=== PATIENT | female | born 1960 | race African-American/Black ===

== ENCOUNTER 2016-06-05 08:46 | Emergency (ER) | payer OTHER ==
[2016-06-05 08:53] VITALS: BP 148/95; PULSE 102; TEMP 100; BMI 35.3
[2016-06-05] MEDS ORDERED: ONDANSETRON *ODT* 4 MG TABLET SL ONE (09:30)
--- NOTE | 2016-06-05 09:30 | PDOC ---
History of Present Illness - General Chief Complaint: Sore Throat Stated Complaint: SORE THROAT, FEVER Time Seen by Provider: 06/05/16 09:15 History Source: Patient Exam Limitations: No Limitations - History of Present Illness Initial Comments: 06/05/16 09:16 Chief complaint: Body aches, sore throat, fever History of present illness: Patient is a 56-year-old female history of hypertension, hyperlipidemia, COPD and diabetes controlled by diet here today complaining of generalized body aches, sore throat, fever, nausea, dry cough , rt. sided back pain since yesterday. She had one episode of vomiting this morning. Pt. also reports urinary frequency, urgency and dysuria since 2016. 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 Patient denies any recent travel. Pt. reports feeling slightly short of breath presently. 06/05/16 09:16 06/05/16 09:33 06/05/16 09:40 06/05/16 12:00 06/06/16 08:46 Timing/Duration: getting worse, changing over time Severity: moderate Associated Symptoms: reports: cough, fever/chills (since yesterday ), loss of appetite, nausea/vomiting (nausea X last 2 days, vomited once today ), shortness of breath (intermittently since 06/02/16 with exertion relieved by pump ), other (urgency, frequency, rt. sided lower back pain ) Past History - Past Medical History Allergies/Adverse Reactions: Allergies Allergy/AdvReac Type Severity Reaction Status Date / Time No Known Allergies Allergy Verified 06/05/16 08:53 Home Medications: Ambulatory Orders Amlodipine Besylate [Norvasc -] 5 mg PO DAILY 04/30/14 Colesevelam HCl [Welchol] 3.75 gm PO DAILY 04/30/14 Nitrofurantoin Monohyd/M-Cryst [Macrobid -] 100 mg PO BID #14 capsule MDD 2 COPD: Yes Diabetes: Yes (DIET CONTROLLED) HTN: Yes Hypercholesterolemia: Yes (does not take medication) - Surgical History Cholecystectomy: Yes - Immunization History Immunization Up to Date: Yes - Psycho/Social/Smoking Cessation Hx Anxiety: No Suicidal Ideation: No Smoking Status: No Smoking History: Never smoked Have you smoked in the past 12 months: No Number of Cigarettes Smoked Daily: 0 If you are a former smoker, when did you quit?: 5 years ago Information on smoking cessation initiated: No Hx Alcohol Use: No Drug/Substance Use Hx: No Substance Use Type: None Hx Substance Use Treatment: No Review of Systems - Review of Systems Able to Perform ROS?: Yes Constitutional: No: Symptoms Reported HEENTM: Yes: Throat Pain Respiratory: Yes: Cough, SOB with Exertion (since 06/02/16) Cardiac (ROS): No: Symptoms Reported ABD/GI: Yes: Nausea (since yesterday ), Vomiting : Yes: Dysuria, Frequency, Urgency (since 06/02/16). No: Hematuria Musculoskeletal: Yes: Muscle Pain (rt. lower back ), Other (generalized body aches) Integumentary: No: Symptoms Reported Neurological: No: Symptoms reported *Physical Exam - Vital Signs Last Vital Signs Temp Pulse Resp BP Pulse Ox 100 F H 102 H 19 148/95 97 06/05/16 08:51 06/05/16 08:51 06/05/16 08:51 06/05/16 08:51 06/05/16 08:51 - Physical Exam General Appearance: Yes: Appropriately Dressed HEENT: positive: TMs Normal, Pharyngeal Erythema. negative: Tonsillar Exudate, Tonsillar Erythema Neck: negative: Lymphadenopathy (R), Lymphadenopathy (L) Respiratory/Chest: positive: Lungs Clear, Normal Breath Sounds. negative: Chest Tender, Respiratory Distress Cardiovascular: positive: Regular Rhythm, Regular Rate, S1, S2 Gastrointestinal/Abdominal: positive: Normal Bowel Sounds, Soft. negative: Tender, Organomegaly, Distended, Guarding, Rebound, Tenderness, Hepatomegaly, Spleenomegaly Musculoskeletal: positive: Normal Inspection, CVA Tenderness (R), Other (rt. lower back tenderness). negative: CVA Tenderness, CVA Tenderness (L) Integumentary: positive: Normal Color Neurologic: positive: Alert, Normal Response, Responsive Medical Decision Making - Medical Decision Making 06/05/16 09:41 Patient is a 56-year-old female history of hypertension, hyperlipidemia, COPD and diabetes controlled by diet here today complaining of generalized body aches , sore throat, fever, nausea, dry cough , rt. sided back pain since yesterday. Her twin episode of vomiting this morning. Patient also reports urinary frequency urgency and dysuria since 06/02/2016. 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 Patient denies any recent travel. {Pt. reports feeling slightly short of breath presently. right lower back pain Strep tonsillitis generalized bodyaches b/l renal calculi non obstructing UTI PLAN: influenza A or B rapid negative throat C & S + for Beta Hemolytic strep Group A U/A urine C & S duoneb zofran 4 mg sl Bicillin 1.2 million IM once ibuprofen 400 mg now macrobid 100 mg bid for 7 days follow up with urology Laboratory Tests 06/05/16 09:30 Urine Color Yellow Urine Appearance Clear Urine pH 5.0 Ur Specific [place] 1.023 Urine Protein Negative Urine Glucose (UA) Negative Urine Ketones Negative Urine Blood 1+ H Urine Nitrite Negative Urine Bilirubin Negative Urine Urobilinogen Negative Ur Leukocyte Esterase Trace H D Urine RBC 1 Urine WBC 2 Ur Epithelial Cells Rare Urine Mucus Rare 06/05/16 10:56 06/05/16 12:02 06/05/16 12:06 06/05/16 12:13 06/06/16 08:48 06/06/16 08:48 *DC/Admit/Observation/Transfer Diagnosis at time of Disposition: Streptococcal tonsillitis, Renal calculus, bilateral Urinary tract infection Qualifiers: Urinary tract infection type: acute cystitis Hematuria presence: with hematuria Qualified Code(s): N30.01 - Acute cystitis with hematuria - Discharge Dispostion Disposition: HOME Condition at time of disposition: Stable - Prescriptions Prescriptions: Nitrofurantoin Monohyd/M-Cryst [Macrobid -] 100 mg PO BID #14 capsule MDD 2 - Referrals Referrals: Stephanie Graf MD [Primary Care Provider] - Michael Jaimes MD [Staff Physician] - - Patient Instructions Additional Instructions: Drink A lot a fluids especially cranberry REturn To emergency room if symptoms worsen or new symptoms develop Follow Up with urologist as soon as possible Throw out her toothbrush and get new toothbrush Patient voiced understanding of discharge instructions and all questions were answered - Post Discharge Activity Work/School Note: Back to Work
[2016-06-05] MEDS ORDERED: ONDANSETRON *ODT* 4 MG TABLET ONE (09:35)
[2016-06-05] MEDS ORDERED: ALBUTEROL SO4 2.5/IPRATROPIUM 0.5 INH SOL 3 ML VIAL.NEB. NEB ONE ×2 (09:37→09:39)
[2016-06-05] MEDS ORDERED: IBUPROFEN 400 MG TABLET (FP) PO ONE ×2 (09:56→09:59)
[2016-06-05 10:26] LABS: URINE APPEARANCE CLEAR; URINE BILIRUBIN NEGATIVE (NEGATIVE); URINE COLOR YELLOW; URINE GLUCOSE (UA) NEGATIVE (NEGATIVE); URINE KETONE NEGATIVE (NEGATIVE); URINE NITRITE NEGATIVE (NEGATIVE); URINE PROTEIN NEGATIVE (NEGATIVE); URINE UROBILINOGEN NEGATIVE E.U./dl (0.2-1.0)
[2016-06-05 10:37] LABS: URINE BLOOD 1+ (NEGATIVE); URINE LEUK ESTERASE TRACE (NEGATIVE)
[2016-06-05 10:38] LABS: URINE MUCUS RARE; URINE RBC 1 /hpf (0-3); URINE WBC 2 /hpf (3-5)
[2016-06-05] MEDS ORDERED: PENICILLIN G BENZATHINE 1,200,000 UNIT/2 ML PFS IM ONE (12:08)
[2016-06-05] MEDS ORDERED: PENICILLIN G BENZATHINE 2,400,000 UNIT/4 ML PFS ONE (12:13)
== END 2016-06-05 12:18 | disposition home or self-care (01) ==
LOC: JERFT 08:46
DX: J03.90 Acute tonsillitis, unspecified (principal); B95.0 Streptococcus, group A, as the cause of diseases classified elsewhere; N30.00 Acute cystitis without hematuria; N20.0 Calculus of kidney
CPT/HCPCS: 74176; 81003; 81015; 87070; 87077; 87086; 87804; 96372; 99281-25

== ENCOUNTER 2016-11-26 14:27 | Emergency (ER) | payer OTHER ==
[2016-11-26 14:46] VITALS: BP 145/78; PULSE 86; TEMP 98.2; BMI 34.8
[2016-11-26] MEDS ORDERED: KETOROLAC TROMETHAMINE 30 MG/1 ML VIAL IVPUSH ONE (15:27)
[2016-11-26] MEDS ORDERED: SODIUM CHLORIDE 1,000 ML IV STA (15:27)
[2016-11-26] MEDS ORDERED: ONDANSETRON 4 MG/2 ML VIAL IVPUSH ONE (15:27)
[2016-11-26] MEDS ORDERED: KETOROLAC TROMETHAMINE 30 MG/1 ML VIAL ONE (15:34)
[2016-11-26] MEDS ORDERED: ONDANSETRON 4 MG/2 ML VIAL ONE (15:34)
--- NOTE | 2016-11-26 15:51 | PDOC ---
History of Present Illness - General Chief Complaint: Pain Stated Complaint: PAIN Time Seen by Provider: 11/26/16 14:54 History Source: Patient Exam Limitations: No Limitations - History of Present Illness Travel History: No Initial Comments: 11/26/16 16:31 56 y/o female presents the ED with complaints of right flank pain associated with nausea and mild urinary frequency. Patient states has history of renal colic and recently was diagnosed with the UTI but was unable to pick up man the antibiotics due to her pain today. Patient states is followed by Dr. Graf who was a prescribing physician for the urinary tract infection. Patient denies fever, chills, vomiting, hematuria, abdominal distention, or diarrhea. Timing/Duration: reports: constant Quality: reports: moderate Abdominal Pain Onset Location: reports: flank (rt) Pain Radiation: reports: back Activities at Onset: reports: none Aggravating Factors: improves with: None Alleviating Factors: improves with: None Past History - Travel Traveled outside of the country in the last 30 days: No Close contact w/someone who was outside of country & ill: No - Past Medical History Allergies/Adverse Reactions: Allergies Allergy/AdvReac Type Severity Reaction Status Date / Time No Known Allergies Allergy Verified 11/26/16 14:46 Home Medications: Ambulatory Orders Amlodipine Besylate [Norvasc -] 5 mg PO DAILY 04/30/14 Acetaminophen [Tylenol] 325 mg PO Q6H PRN #16 tablet 11/26/16 Nitrofurantoin Monohyd/M-Cryst [Macrobid -] 100 mg PO BID #14 capsule 11/26/16 COPD: Yes Diabetes: Yes (DIET CONTROLLED) HTN: Yes Hypercholesterolemia: Yes (does not take medication) - Surgical History Cholecystectomy: Yes - Immunization History Immunization Up to Date: Yes - Suicide/Smoking/Psychosocial Hx Smoking Status: No Smoking History: Never smoked Have you smoked in the past 12 months: No Number of Cigarettes Smoked Daily: 0 If you are a former smoker, when did you quit?: 5 years ago Information on smoking cessation initiated: No Hx Alcohol Use: No Drug/Substance Use Hx: No Substance Use Type: None Hx Substance Use Treatment: No Patient Lives Alone: No Lives with/in: spouse/SO Review of Systems - Review of Systems Able to Perform ROS?: Yes Constitutional: No: Symptoms Reported HEENTM: No: Symptoms Reported Respiratory: No: Symptoms reported Cardiac (ROS): No: Symptoms Reported ABD/GI: Yes: Nausea, Abdominal cramping : Yes: Frequency, Flank Pain Musculoskeletal: Yes: Back Pain Integumentary: No: Symptoms Reported Neurological: No: Symptoms reported Endocrine: No: Symptoms Reported *Physical Exam - Vital Signs Last Vital Signs Temp Pulse Resp BP Pulse Ox 98.2 F 86 18 145/78 100 11/26/16 14:40 11/26/16 14:40 11/26/16 14:40 11/26/16 14:40 11/26/16 14:40 - Physical Exam General Appearance: Yes: Nourished, Appropriately Dressed. No: Apparent Distress HEENT: negative: Pale Conjunctivae Neck: positive: Supple Respiratory/Chest: positive: Lungs Clear, Normal Breath Sounds. negative: Respiratory Distress, Accessory Muscle Use Cardiovascular: positive: Regular Rhythm, Regular Rate. negative: Murmur Gastrointestinal/Abdominal: positive: Normal Bowel Sounds, Soft, Tenderness (rt flank). negative: Distended, Guarding, Rebound Musculoskeletal: positive: CVA Tenderness (R) Extremity: positive: Normal Capillary Refill. negative: Pedal Edema Integumentary: positive: Normal Color, Warm, Moist Neurologic: positive: Motor Strength 5/5 (ambulatory) ED Treatment Course - LABORATORY CBC & Chemistry Diagram: 11/26/16 15:45 11/26/16 15:45 Medical Decision Making - Medical Decision Making 11/26/16 17:00 Patient here with complaints of right flank pain and urinary frequency and nausea. Patient states history of renal colic and recently was diagnosed with UTI by Dr. cates but was unable to start antibiotics today secondary to above symptoms. Patient on exam had right CVA tenderness along the right flank pain. Patient with a CBC, comp, urinalysis, urine culture Zofran, Toradol IV fluids and kidney ultrasound. 11/26/16 17:22 Laboratory Tests 11/26/16 11/26/16 11/26/16 15:45 15:45 15:45 WBC 5.6 Hgb 12.9 Hct 39.7 Plt Count 221 Neutrophils % 49.2 D Lymphocytes % 41.4 H D Sodium 143 Potassium 3.2 L Chloride 107 Carbon Dioxide 30 Anion Gap 6 L BUN 12 Creatinine 0.9 Creat Clearance w eGFR > 60 Random Glucose 150 H D Calcium 8.8 Magnesium 1.9 Total Bilirubin 1.3 H D AST 29 D ALT 32 D Lipase 133 Urine Ketones Negative Urine Blood 1+ H Ur Leukocyte Esterase Pending Urine RBC 20 Urine WBC 9 k-Dur 40 meq po x 1 ordered. *DC/Admit/Observation/Transfer Diagnosis at time of Disposition: Urinary tract infection, Renal cyst - Discharge Dispostion Disposition: HOME - Prescriptions Prescriptions: Nitrofurantoin Monohyd/M-Cryst [Macrobid -] 100 mg PO BID #14 capsule Acetaminophen [Tylenol] 325 mg PO Q6H PRN #16 tablet PRN Reason: Pain - Referrals Referrals: Stephanie Graf MD [Primary Care Provider] - Mili Joy MD [Staff Physician] - - Patient Instructions Printed Discharge Instructions: DI for Urinary Tract Infection (UTI) Additional Instructions: Please take medications as prescribed. Follow up with Dr. Graf by the end of this week. You may manage the discomfort from the cyst from your kidney using Tylenol; however you should follow up with a pet crematory worker for continued monitoring of your kidney function. If you develop any fever, chills, vomiting , diarrhea, unmanageable pain, or any new or worsening symptoms, please return to the ER.
[2016-11-26 15:57] LABS: BASOPHIL 0.8 % (0-2.0); EOSINOPHIL 2.1 % (0-4.5); MCH 26.9 pg (25.7-33.7); MCHC 32.6 g/dl (32.0-36.0); MEAN CELL VOLUME 82.4 fl (80-96); NEUTROPHILS 49.2 % (42.8-82.8); PLATELET COUNT 221 K/MM3 (134-434); RDW 14.4 % (11.6-15.6); URINE APPEARANCE CLOUDY; URINE BILIRUBIN NEGATIVE (NEGATIVE); URINE BLOOD 1+ (NEGATIVE); URINE COLOR YELLOW; URINE GLUCOSE (UA) 1+ (NEGATIVE); URINE KETONE NEGATIVE (NEGATIVE); URINE NITRITE NEGATIVE (NEGATIVE); URINE PROTEIN NEGATIVE (NEGATIVE); URINE UROBILINOGEN NEGATIVE mg/dL (0.2-1.0); WHITE BLOOD COUNT 5.6 K/mm3 (4.0-10.0)
[2016-11-26 16:00] LABS: URINE BACTERIA RARE /hpf (NONE SEEN); URINE HYALINE CAST 3 /lpf; URINE MUCUS RARE; URINE RBC 20 /hpf (0-3); URINE WBC 9 /hpf (3-5)
[2016-11-26 16:29] LABS: ALBUMIN 3.5 g/dl (3.4-5.0); ALK PHOS 87 U/L (45-117); ANION GAP 6 (8-16); BILIRUBIN,TOTAL 1.3 mg/dL (0.2-1.0); CALCIUM 8.8 mg/dL (8.5-10.1); CO2 30 mmol/L (21-32); CREATININE 0.9 mg/dL (0.55-1.02); GLUCOSE,RANDOM 150 mg/dL (74-106); MAGNESIUM 1.9 mg/dL (1.8-2.4); SGOT/AST 29 U/L (15-37); SGPT/ALT 32 U/L (12-78); TOT PROT 7.3 g/dl (6.4-8.2)
[2016-11-26] MEDS ORDERED: POTASSIUM CHLORIDE TABS 20 MEQ TABLET.ER (FP) PO ONE ×2 (17:21→17:42)
[2016-11-26 17:35] LABS: URINE LEUK ESTERASE 1+ (NEGATIVE)
--- NOTE | 2016-11-26 19:40 | PDOC ---
*Physical Exam - Vital Signs Last Vital Signs Temp Pulse Resp BP Pulse Ox 98.2 F 86 18 145/78 100 11/26/16 14:40 11/26/16 14:40 11/26/16 14:40 11/26/16 14:40 11/26/16 14:40 - Physical Exam Comments: 11/26/16 19:35 Sign-out received from outgoing ER provider Elver. Pt interviewed and examined. Ancillary studies reviewed. Awaiting ultrasound results. 11/26/16 20:13 Ultrasound positive for 2.4cm complex cyst in upper pole of left kidney. No hydronephrosis b/l. No obvious renal calculi. Some doppler vascular flow noted in both kidneys. Incidental hepatic steatosis. Advised patient to f/u with Dr. 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 Patient states she wants to picker machine operator medication today from [facility] because Dr. Graf sent medication to [facility]; patient is unsure what antibiotics he prescribed. Will rx Macrobid for UTI and Tylenol for discomfort secondary to cyst. Advised patient to take antibiotics as prescribed and of signs and symptoms for return to ER; patietn verbalized understanding and agrees to plan. ED Treatment Course - LABORATORY CBC & Chemistry Diagram: 11/26/16 15:45 11/26/16 15:45 - ADDITIONAL ORDERS Additional order review: Laboratory Results 11/26/16 11/26/16 15:45 15:45 Sodium 143 Potassium 3.2 L Chloride 107 Carbon Dioxide 30 Anion Gap 6 L BUN 12 Creatinine 0.9 Creat Clearance w eGFR > 60 Random Glucose 150 H D Calcium 8.8 Magnesium 1.9 Total Bilirubin 1.3 H D AST 29 D ALT 32 D Alkaline Phosphatase 87 Total Protein 7.3 Albumin 3.5 Lipase 133 Urine Color Yellow Urine Appearance Cloudy Urine pH 5.0 Ur Specific [place] 1.025 Urine Protein Negative Urine Glucose (UA) 1+ H Urine Ketones Negative Urine Blood 1+ H Urine Nitrite Negative Urine Bilirubin Negative Urine Urobilinogen Negative Ur Leukocyte Esterase 1+ H Urine RBC 20 Urine WBC 9 Ur Epithelial Cells Few Urine Bacteria Rare Hyaline Casts 3 Urine Mucus Rare 11/26/16 15:45 RBC 4.82 MCV 82.4 MCHC 32.6 RDW 14.4 MPV 9.0 Neutrophils % 49.2 D Lymphocytes % 41.4 H D Monocytes % 6.5 Eosinophils % 2.1 Basophils % 0.8 - Medications Given in the ED: ED Medications Discontinued Medications Generic Name Dose Route Start Last Admin Trade Name Freq PRN Reason Stop Dose Admin Sodium Chloride 1,000 mls @ 1,000 mls/hr 11/26/16 15:27 11/26/16 15:30 Normal Saline - IV 11/26/16 16:26 1,000 mls/hr ASDIR STA Administration Ketorolac Tromethamine 30 mg 11/26/16 15:27 11/26/16 15:30 Toradol Injection - IVPUSH 11/26/16 15:28 30 mg ONCE ONE Administration Ondansetron HCl 4 mg 11/26/16 15:27 11/26/16 15:30 Zofran Injection IVPUSH 11/26/16 15:28 4 mg ONCE ONE Administration Potassium Chloride 40 meq 11/26/16 17:21 11/26/16 17:25 K-Dur - PO 11/26/16 17:22 40 meq ONCE ONE Administration *DC/Admit/Observation/Transfer Diagnosis at time of Disposition: Renal cyst Urinary tract infection Qualifiers: Urinary tract infection type: site unspecified Hematuria presence: with hematuria Qualified Code(s): N39.0 - Urinary tract infection, site not specified ; N39.0 - Urinary tract infection, site not specified; R31.9 - Hematuria, unspecified; R31.9 - Hematuria, unspecified - Discharge Dispostion Disposition: HOME Condition at time of disposition: Improved Admit: No - Prescriptions Prescriptions: Nitrofurantoin Monohyd/M-Cryst [Macrobid -] 100 mg PO BID #14 capsule Acetaminophen [Tylenol] 325 mg PO Q6H PRN #16 tablet PRN Reason: Pain - Referrals Referrals: Stephanie Graf MD [Primary Care Provider] - Mili Joy MD [Staff Physician] - - Patient Instructions Printed Discharge Instructions: DI for Urinary Tract Infection (UTI) Additional Instructions: Please take medications as prescribed. Follow up with Dr. Graf by the end of this week. You may manage the discomfort from the cyst from your kidney using Tylenol; however you should follow up with a weed control inspector for continued monitoring of your kidney function. If you develop any fever, chills, vomiting , diarrhea, unmanageable pain, or any new or worsening symptoms, please return to the ER.
== END 2016-11-26 20:41 | disposition home or self-care (01) ==
LOC: JER 14:27
PROC: 3E0333Z Introduction of Anti-inflammatory into Peripheral Vein, Percutaneous Approach (ICD-10-PCS; principal; 2016-11-26)
PROC: 3E033GC Introduction of Other Therapeutic Substance into Peripheral Vein, Percutaneous Approach (ICD-10-PCS; 2016-11-26)
DX: N39.0 Urinary tract infection, site not specified (principal); N31.9 Neuromuscular dysfunction of bladder, unspecified; N28.1 Cyst of kidney, acquired
CPT/HCPCS: 36415; 76775-TC; 80053; 81003; 81015; 83690; 83735; 85025; 87086; 96374; 96375; 99281-25

== ENCOUNTER 2017-06-06 13:00 | Emergency (ER) | payer OTHER ==
[2017-06-06 13:14] VITALS: TEMP 98.5; BMI 34.3
--- NOTE | 2017-06-06 14:04 | PDOC ---
History of Present Illness - General Chief Complaint: Pain, Acute Stated Complaint: RT SIDE PAIN Time Seen by Provider: 06/06/17 13:33 History Source: Patient Exam Limitations: No Limitations - History of Present Illness Initial Comments: This is a 57 YOF with h/o NIDDM, HTN, HLD, multiple ovarian cysts, TIAx2, and multiple abdominal surgeries (CSx2, cholecystectomy, partial HYST, ovarian cyst removal, and partial colectomy to remove a portion of necrotic bowel which she says was d/t adhesions) who p/w BRBPR on 5 days ago (states about one cup), and RLQ pain since this morning. She notes 7/10 sharp nagging non-radiating RLQ pain currently which was actually 10/10 at the first onset this morning. She additionally notes nausea, recent dark/black stool for a few episodes since Sunday, and concentrated urine but she denies any actual vomiting, diarrhea, constipation, fever, chills, chest pain, SOB, painful urination, headache, or lightheadedness. She has been passing gas normally today. She denies any sick contacts or heavy lifting. Past History - Past Medical History Allergies/Adverse Reactions: Allergies Allergy/AdvReac Type Severity Reaction Status Date / Time No Known Allergies Allergy Verified 06/06/17 13:11 Home Medications: Ambulatory Orders Amlodipine Besylate [Norvasc -] 5 mg PO DAILY 04/30/14 Aspirin [ASA -] 81 mg PO DAILY 06/06/17 Ciprofloxacin HCl [Cipro] 500 mg PO BID #14 tablet 06/06/17 Lisinopril 5 mg PO DAILY 06/06/17 Metformin HCl 500 mg PO BID 06/06/17 COPD: Yes Diabetes: Yes (DIET CONTROLLED) HTN: Yes Hypercholesterolemia: Yes (does not take medication) - Surgical History Cholecystectomy: Yes - Immunization History Immunization Up to Date: Yes - Suicide/Smoking/Psychosocial Hx Smoking Status: No Smoking History: Never smoked Have you smoked in the past 12 months: No Number of Cigarettes Smoked Daily: 0 If you are a former smoker, when did you quit?: 12YRS Information on smoking cessation initiated: No Hx Alcohol Use: No Drug/Substance Use Hx: No Substance Use Type: None Hx Substance Use Treatment: No Review of Systems - Review of Systems Able to Perform ROS?: Yes Constitutional: No: Chills, Fever, Unexplained wgt Loss HEENTM: No: Nose Congestion, Throat Pain Respiratory: No: Cough, Shortness of Breath Cardiac (ROS): No: Chest Pain, Palpitations ABD/GI: Yes: Nausea, Rectal Bleeding, Other (abdominal pain). No: Constipated, Diarrhea, Vomiting : Yes: Other (concentrated urine). No: Burning, Dysuria Musculoskeletal: No: Back Pain, Neck Pain Integumentary: No: Bruising, Rash Neurological: No: Headache, Numbness, Tingling, Weakness, Dizziness Endocrine: No: Unexplained Weight Gain, Unexplained Weight Loss *Physical Exam - Vital Signs Last Vital Signs Temp Pulse Resp BP Pulse Ox 98.5 F 72 17 134/83 97 06/06/17 13:12 06/06/17 13:12 06/06/17 13:12 06/06/17 13:12 06/06/17 13:12 - Physical Exam General Appearance: Yes: Nourished, Appropriately Dressed, Obese, Other (alert, oriented, pleasant, appropriately answering adult female accompanied by her daughter). No: Apparent Distress HEENT: positive: EOMI, Normal Voice, Hearing Grossly Normal. negative: Scleral Icterus (R), Scleral Icterus (L), Nasal Congestion Neck: positive: Trachea midline, Supple. negative: Tender, Rigid Respiratory/Chest: positive: Lungs Clear, Normal Breath Sounds. negative: Respiratory Distress, Crackles, Rhonchi, Stridor, Wheezing Cardiovascular: positive: Regular Rhythm, Regular Rate, S1, S2. negative: Edema , JVD, Murmur Gastrointestinal/Abdominal: positive: Normal Bowel Sounds, Tender (mild ttp RLQ with minimal RUQ and epigastric ttp, no peritoneal signs), Soft. negative: Organomegaly, Pulsatile Mass, Guarding Rectal Exam: positive: normal exam, normal rectal tone, other (no stool in the rectal vault, no blood and minimal sample can be obtained for FOBT). negative: hemorrhoids Musculoskeletal: positive: Normal Inspection. negative: Decreased Range of Motion, Vertebral Tenderness Extremity: positive: Normal Capillary Refill, Normal Inspection, Normal Range of Motion. negative: Tender, Cyanosis Integumentary: positive: Normal Color, Dry, Warm. 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 negative: Facial Droop , Numbness, Sensory Deficit, Confused, Disoriented ED Treatment Course - LABORATORY CBC & Chemistry Diagram: 06/06/17 13:54 06/06/17 13:54 Medical Decision Making - Medical Decision Making Adult female patient with many prior abdominal surgeries p/w RLQ pain and BRBPR. Initial Vital Signs Temp Pulse Resp BP Pulse Ox 98.5 F 72 17 134/83 97 06/06/17 13:12 06/06/17 13:12 06/06/17 13:12 06/06/17 13:12 06/06/17 13:12 Exam: mild ttp RLQ, minimal RUQ and epigastrium ttp without peritoneal signs or CVA ttp, no midline pulsatile masses. DDX IBNLT: UTI/pyelonephritis, renal colic, SBO, bowel ischemia, bowel perforation, malignancy, ovarian torsion, ovarian cyst, AAA/AD, hernia, pancreatitis, gastritis, PUD, appendicitis, diverticulitis wwo abscess or perforation, colitis, regional ileitis (Crohns disease), musculoskeletal, etc W/U ordered: CBCD CMP Lactate Lipase UA UCx FOBT TX ordered: IVF, Ofirmev Unlikely UTI/pyelonephritis as patient has no dysuria, strange colors/smells, no h/o recurrent UTI. Unlikely renal stone as patient notes no clinical hematuria, has no CVA ttp. Unlikely SBO as patient has been passing stool and gas normally per their baseline. Unlikely mesenteric ischemia as patient has no known A-fib or coagulopathy, no pain out of proportion. Unlikely bowel perforation as patient does not appear to have acute abdomen, no peritoneal signs. Unlikely malignancy as patient has no palpable mass, no reported recent B symptoms. Unlikely diverticulitis as patient has no known h/o diverticulosis/ diverticulitis. Unlikely colitis as clinically pts abdomen is not distended/no ascites, no fever, other VS wnl. Unlikely ovarian torsion as patient has no adnexal ttp on bimanual exam. Unlikely ovarian cyst as patient denies h/o ovarian cysts, unlikely hemorrhagic as pt denies sxs of anemia. Unlikely AAA/AD as no midline pulsatile mass or h/o AAA/AD, denies h/o HTN or connective tissue d/o. Unlikely hernia as there is no outwardly palpable lump. Unlikely pancreatitis as pt denies EtOH use, h/o gallstones, no known hypercalcemia. Unlikely gastritis as pt denies h/o significant GERD, no overuse of EtOH. Unlikely PUD as pt does not report relief of pain ~2 hours postprandially or with antacids. Unlikely appendicitis as pt has no fever, no anorexia, no marked RLQ or umbilical ttp. Unlikely Crohns as pt denies recent wt loss, anorexia, diarrhea, or h/o Crohns (though onset MC in 20s & 50s). Laboratory Results - last 24 hr 06/06/17 06/06/17 06/06/17 13:54 13:54 13:54 WBC 5.4 RBC 4.73 Hgb 13.1 Hct 39.4 MCV 83.3 MCH 27.6 MCHC 33.2 RDW 14.0 Plt Count 227 MPV 8.6 Neutrophils % 40.7 L Lymphocytes % 47.2 H Monocytes % 8.5 Eosinophils % 2.8 Basophils % 0.8 Sodium 142 Potassium 3.6 Chloride 105 Carbon Dioxide 28 Anion Gap 9 BUN 12 Creatinine 0.7 Creat Clearance w eGFR > 60 Random Glucose 121 H Lactic Acid Calcium 9.4 Total Bilirubin 1.4 H AST 29 ALT 30 Alkaline Phosphatase 81 Total Protein 7.5 Albumin 3.7 Lipase 88 Urine Color Yellow Urine Appearance Slcloudy Urine pH 5.0 Ur Specific [place] 1.023 Urine Protein Negative Urine Glucose (UA) Negative Urine Ketones Negative Urine Blood Negative Urine Nitrite Negative Urine Bilirubin Negative Urine Urobilinogen Negative Ur Leukocyte Esterase 2+ H D Urine WBC (Auto) 6 Urine RBC (Auto) 3 Ur Epithelial Cells Few Urine Bacteria Rare Hyaline Casts 2 Urine Mucus Few Stool Occult Blood 06/06/17 06/06/17 14:08 14:08 WBC RBC Hgb Hct MCV MCH MCHC RDW Plt Count MPV Neutrophils % Lymphocytes % Monocytes % Eosinophils % Basophils % Sodium Potassium Chloride Carbon Dioxide Anion Gap BUN Creatinine Creat Clearance w eGFR Random Glucose Lactic Acid 1.7 Calcium Total Bilirubin AST ALT Alkaline Phosphatase Total Protein Albumin Lipase Urine Color Urine Appearance Urine pH Ur Specific [place] Urine Protein Urine Glucose (UA) Urine Ketones Urine Blood Urine Nitrite Urine Bilirubin Urine Urobilinogen Ur Leukocyte Esterase Urine WBC (Auto) Urine RBC (Auto) Ur Epithelial Cells Urine Bacteria Hyaline Casts Urine Mucus Stool Occult Blood Negative CT: probable mild sigmoid diverticulosis without diverticulitis no other acute causative pathology. Reassessment: Minimal RLQ ttp without peritoneal signs, improved from presentation Repeat VS: The patient has gotten significant relief of symptoms with ED medications. Workup is not concerning for emergency-level pathology at this time. The patient is appropriate for discharge with close outpatient follow up. The patient is comfortable with this plan and will follow up with their PCP in 1 -3 days. She will take Motrin and/or Tylenol for pain. She will brick picker her Rx for cipro for UTI and diverticulosis. She will follow up with their regular doctor in the next 1-3 days. Return precautions are discussed and they will come back to the ER if necessary. *DC/Admit/Observation/Transfer Diagnosis at time of Disposition: Renal calculus, bilateral Urinary tract infection Qualifiers: Urinary tract infection type: site unspecified Hematuria presence: with hematuria Qualified Code(s): N39.0 - Urinary tract infection, site not specified Diverticulosis Qualifiers: Diverticulosis site: diverticulosis of large intestine Diverticulosis bleeding : diverticulosis with bleeding Qualified Code(s): K57.31 - Diverticulosis of large intestine without perforation or abscess with bleeding - Discharge Dispostion Disposition: HOME Condition at time of disposition: Stable Admit: No - Prescriptions Prescriptions: Ciprofloxacin HCl [Cipro] 500 mg PO BID #14 tablet - Referrals Referrals: Panfilo Hansen MD [Staff Physician] - Stephanie Graf MD [Primary Care Provider] - - Patient Instructions Additional Instructions: You were seen in the ER for lower abdominal pain and rectal bleeding. We did an exam, laboratory work on your blood and urine, and CT scan, which showed a mild colon diverticulosis and a bladder infection, as well as some kidney stones which are not currently trying to pass. We did not find any other signs of an emergency. Your pain improved with the medications we gave you here in the ER. After our assessment, we believe you are not having a medical emergency and you are safe to go home. Please take [id number] pain relievers like Tylenol. family support specialist your prescriptions for antibiotic which we are sending to your pharmacy. Follow up with your regular doctor(s) in the next 1-3 days. Also follow up with Dr. Hansen. Call their clinic [facility], tell them you were seen in the ER, and tell them you need an appointment. Please come back to the ER at any time, 24 hours a day, for any new or worsening symptoms, like worsening pelvic pain, discharge, high fever, or other symptoms. If you are having severe or life threatening symptoms, or symptoms that make it unsafe to drive or have someone drive you, please call 911. - Post Discharge Activity Forms/Work/School Notes: Back to Work
[2017-06-06 14:07] LABS: BASO % 0.8 % (0-2.0); EOS % 2.8 % (0-4.5); HEMATOCRIT 39.4 % (32.4-45.2); HEMOGLOBIN 13.1 GM/dL (10.7-15.3); LYMPH % 47.2 % (8-40); MCH 27.6 pg (25.7-33.7); MCHC 33.2 g/dl (32.0-36.0); MEAN CELL VOLUME 83.3 fl (80-96); MEAN PLT VOLUME 8.6 fl (7.5-11.1); MONO % 8.5 % (3.8-10.2); NEUT % 40.7 % (42.8-82.8); PLATELET COUNT 227 K/MM3 (134-434); RBC 4.73 M/mm3 (3.60-5.2); WHITE BLOOD COUNT 5.4 K/mm3 (4.0-10.0)
[2017-06-06] MEDS ORDERED: SODIUM CHLORIDE 0.9% 500 ML INFUS.BAG IV ONE (14:07)
[2017-06-06 14:08] LABS: URINE APPEARANCE SLCLOUDY; URINE BILIRUBIN NEGATIVE (<2.0 mg/dL); URINE BLOOD NEGATIVE (NEGATIVE); URINE COLOR YELLOW; URINE GLUCOSE (UA) NEGATIVE (NEGATIVE); URINE KETONE NEGATIVE (NEGATIVE); URINE LEUK ESTERASE 2+ (NEGATIVE); URINE NITRITE NEGATIVE (NEGATIVE); URINE PROTEIN NEGATIVE (NEGATIVE); URINE UROBILINOGEN NEGATIVE mg/dL (0.2-1.0)
[2017-06-06 14:10] LABS: EPI CELLS FEW /HPF (FEW); URINE BACTERIA RARE /hpf (NONE SEEN); URINE HYALINE CAST 2 /lpf; URINE MUCUS FEW
[2017-06-06 14:30] LABS: ALBUMIN 3.7 g/dl (3.4-5.0); ALK PHOS 81 U/L (45-117); ANION GAP 9 (8-16); BILIRUBIN,TOTAL 1.4 mg/dL (0.2-1.0); BLOOD UREA NITROGEN 12 mg/dL (7-18); CALCIUM 9.4 mg/dL (8.5-10.1); CHLORIDE 105 mmol/L (98-107); CO2 28 mmol/L (21-32); CREATININE 0.7 mg/dL (0.55-1.02); GLUCOSE,RANDOM 121 mg/dL (74-106); LIPASE 88 U/L (73-393); POTASSIUM 3.6 mmol/L (3.5-5.1); SGOT/AST 29 U/L (15-37); SGPT/ALT 30 U/L (12-78); SODIUM 142 mmol/L (136-145); TOT PROT 7.5 g/dl (6.4-8.2)
--- NOTE | 2017-06-06 14:34 | PDOC ---
Attending Attestation - HPI HPI: 06/06/17 14:40 The patient is a 57 year old female, with a significant past medical history of diabetes, hypertension, hyperlipidemia, TIAX2, multiple ovarian cysts, TIAx2, and multiple abdominal surgeries (CSx2, cholecystectomy, partial hysterectomy, ovarian cyst removal, and partial colectomy to remove a portion of necrotic bowel), who presents to the emergency department with episode of blood in stool 5 days ago and right lower quadrant pain since today. Patient reports she first noted bright red blood in the toilet bowl about 5 days ago. Today, she reports new onset of right lower quadrant pain, sharp in nature, and nonradiating. Patient currently rates the pain a 7/10. She reports associated nausea, but denies any diarrhea or constipation. Patient reports she has been able to pass gas normally. She denies any recent fever, chills, chest pain, shortness of breath, diaphoresis, or palpitations. She denies any recent travel, sick contacts, or heavy lifting. The patient is on Aspirin - Medical Decision Making 06/06/17 14:40 Documentation prepared by Cinda Fine, acting as medical researcher for Rohith Campuzano MD. <Cinda Fine - Last Filed: 06/06/17 14:40> - Resident Resident Name: Lois Lundberg - ED Attending Attestation I have performed the following: I have examined & evaluated the patient, The case was reviewed & discussed with the resident, I agree w/resident's findings & plan, Exceptions are as noted - Physicial Exam PE: 06/06/17 16:15 Patient is awake and alert, obese, in mild distress; Normocephalic, atraumatic PERRLA, EOMI, no scleral icterus CTA RRR Abdomen: Soft, distended, nontympanitic, with mild to moderate right lower quadrant and right-sided abdominal tenderness to palpation without guarding rebound, no CVA tenderness - Medical Decision Making 06/06/17 16:15 Patient is a 57-year-old female with multiple abdominal surgeries who presents with right-sided abdominal pain, nausea and obstipation. Differential diagnoses includes SBO versus UTI versus acute appendicitis versus colitis versus diverticulitis. Will obtain CBC/CMP/UA. Will obtain CT that and pelvis with by mouth contrast. Will hydrate. Will reassess. <Rohith Campuzano - Last Filed: 06/06/17 16:16>
[2017-06-06] MEDS ORDERED: ACETAMINOPHEN 1000 MG/100 ML VIAL (NON FORMULARY) IVPB ONE (15:02)
[2017-06-06] MEDS ORDERED: ACETAMINOPHEN INJECTION 100 ML IVPB ONE (15:03)
[2017-06-06 18:29] VITALS: BP 130/69; PULSE 76
--- NOTE | 2017-06-06 19:54 | PDOC ---
*Physical Exam - Vital Signs Last Vital Signs Temp Pulse Resp BP Pulse Ox 98.5 F 76 16 130/69 99 06/06/17 13:12 06/06/17 18:29 06/06/17 18:29 06/06/17 18:29 06/06/17 18:29 - Physical Exam Comments: 06/06/17 19:52 Gen: aaox3, nad heart: +1s2 reg Lungs: cta b/l Abd: soft, no cva ttp, mild RLQ ttp, no rebound or guarding, obese ext: no edema ED Treatment Course - LABORATORY CBC & Chemistry Diagram: 06/06/17 13:54 06/06/17 13:54 - ADDITIONAL ORDERS Additional order review: Laboratory Results 06/06/17 06/06/17 06/06/17 14:08 14:08 13:54 Sodium 142 Potassium 3.6 Chloride 105 Carbon Dioxide 28 Anion Gap 9 BUN 12 Creatinine 0.7 Creat Clearance w eGFR > 60 Random Glucose 121 H Lactic Acid 1.7 Calcium 9.4 Total Bilirubin 1.4 H AST 29 ALT 30 Alkaline Phosphatase 81 Total Protein 7.5 Albumin 3.7 Lipase 88 Urine Color Urine Appearance Urine pH Ur Specific [place] Urine Protein Urine Glucose (UA) Urine Ketones Urine Blood Urine Nitrite Urine Bilirubin Urine Urobilinogen Ur Leukocyte Esterase Urine WBC (Auto) Urine RBC (Auto) Ur Epithelial Cells Urine Bacteria Hyaline Casts Urine Mucus Stool Occult Blood Negative 06/06/17 13:54 Sodium Potassium Chloride Carbon Dioxide Anion Gap BUN Creatinine Creat Clearance w eGFR Random Glucose Lactic Acid Calcium Total Bilirubin AST ALT Alkaline Phosphatase Total Protein Albumin Lipase Urine Color Yellow Urine Appearance Slcloudy Urine pH 5.0 Ur Specific [place] 1.023 Urine Protein Negative Urine Glucose (UA) Negative Urine Ketones Negative Urine Blood Negative Urine Nitrite Negative Urine Bilirubin Negative Urine Urobilinogen Negative Ur Leukocyte Esterase 2+ H D Urine WBC (Auto) 6 Urine RBC (Auto) 3 Ur Epithelial Cells Few Urine Bacteria Rare Hyaline Casts 2 Urine Mucus Few Stool Occult Blood 06/06/17 13:54 RBC 4.73 MCV 83.3 MCHC 33.2 RDW 14.0 MPV 8.6 Neutrophils % 40.7 L Lymphocytes % 47.2 H Monocytes % 8.5 Eosinophils % 2.8 Basophils % 0.8 - Medications Given in the ED: ED Medications Discontinued Medications Generic Name Dose Route Start Last Admin Trade Name Freq PRN Reason Stop Dose Admin Acetaminophen 1,000 mg 06/06/17 15:02 06/06/17 15:05 Ofirmev Injection - IVPB 06/06/17 15:03 1,000 mg ONCE ONE Administration Sodium Chloride 1,000 ml 06/06/17 14:07 06/06/17 14:18 Normal Saline - IV 06/06/17 14:08 1,000 ml ONCE ONE Administration Medical Decision Making - Medical Decision Making 06/06/17 19:52 a/p: 57yo female signed out by the prior attending pending ct for eval of R flank pain -pt with bilateral renal calculi in renal pelvis, nonobstructing -pt with sigmoid diverticulosis, no diverticulitis -mild UTI, mild suprapubic ttp -will give abx for uti -recommend follow up with lantin for rectal bleeding 5 days ago -stable for d/c to home -eating and tolerating po in the ED -stable for d/c to home *DC/Admit/Observation/Transfer Diagnosis at time of Disposition: Diverticulosis, UTI (urinary tract infection), Renal calculus, bilateral - Discharge Dispostion Disposition: HOME Condition at time of disposition: Stable Admit: No - Prescriptions Prescriptions: Ciprofloxacin HCl [Cipro] 500 mg PO BID #14 tablet metroNIDAZOLE [Flagyl -] 500 mg PO TID #21 tablet - Referrals Referrals: Stephanie Graf MD [Primary Care Provider] - Panfilo Hansen MD [Staff Physician] - - Patient Instructions - Post Discharge Activity - Attestations Physician Attestion: 06/06/17 19:52 I, Dr. Nisha Putnam, DO, attest that this document has been prepared under my direction and personally reviewed by me in its entirety. I further attest, that it accurately reflects all work, treatment, procedures and medical decision -making performed by me.
== END 2017-06-06 20:20 | disposition home or self-care (01) ==
LOC: JER 13:00
PROC: 3E033NZ Introduction of Analgesics, Hypnotics, Sedatives into Peripheral Vein, Percutaneous Approach (ICD-10-PCS; principal; 2017-06-06)
DX: K57.31 Diverticulosis of large intestine without perforation or abscess with bleeding (principal); N39.0 Urinary tract infection, site not specified; N20.0 Calculus of kidney; I10 Essential (primary) hypertension; Z86.73 Personal history of transient ischemic attack (TIA), and cerebral infarction without residual deficits
CPT/HCPCS: 36415; 74176-TC; 80053; 81003; 81015; 82272; 83605; 83690; 85025; 87086; 99283-25; J0131

== ENCOUNTER 2018-02-18 15:05 | Emergency (ER) | payer OTHER ==
[2018-02-18 15:23] VITALS: BMI 33.4
--- NOTE | 2018-02-18 15:23 | PDOC ---
Rapid Medical Evaluation Time Seen by Provider: 02/18/18 15:20 Medical Evaluation: Allergies Allergy/AdvReac Type Severity Reaction Status Date / Time No Known Allergies Allergy Verified 06/06/17 13:11 02/18/18 15:21 I have done a brief in-person assessment of this patient. The patient presents with a chief complaint of elevated blood pressure and headache since last night States taking medication for HTN with no relief of symptoms Intermittent chest pain Pertinent physical exam findings NAD even and unlabored breathing heart s1s2 right side of neck with swelling I have ordered the following: ekg, labs The patient will proceed to the Ed for further evaluation. DX: elevated blood pressure chest pain
[2018-02-18 15:53] LABS: BASO % 0.6 % (0-2.0); EOS % 2.5 % (0-4.5); HEMATOCRIT 39.6 % (32.4-45.2); HEMOGLOBIN 12.7 GM/dL (10.7-15.3); LYMPH % 43.1 % (8-40); MCH 26.4 pg (25.7-33.7); MEAN CELL VOLUME 82.4 fl (80-96); MEAN PLT VOLUME 8.3 fl (7.5-11.1); MONO % 6.9 % (3.8-10.2); NEUT % 46.9 % (42.8-82.8); PLATELET COUNT 212 K/MM3 (134-434); RBC 4.81 M/mm3 (3.60-5.2); RDW 14.2 % (11.6-15.6); WHITE BLOOD COUNT 4.6 K/mm3 (4.0-10.0)
[2018-02-18 16:11] LABS: ALBUMIN 3.4 g/dl (3.4-5.0); ALK PHOS 74 U/L (45-117); ANION GAP 7 MMOL/L (8-16); BILIRUBIN,TOTAL 1.6 mg/dL (0.2-1); BLOOD UREA NITROGEN 10 mg/dL (7-18); CALCIUM 9.2 mg/dL (8.5-10.1); CHLORIDE 109 mmol/L (98-107); CO2 30 mmol/L (21-32); CREATININE 0.8 mg/dL (0.55-1.3); GLUCOSE,RANDOM 117 mg/dL (74-106); POTASSIUM 3.3 mmol/L (3.5-5.1); SGOT/AST 18 U/L (15-37); SGPT/ALT 23 U/L (13-61); SODIUM 146 mmol/L (136-145); TOT PROT 6.8 g/dl (6.4-8.2)
[2018-02-18 17:05] LABS: INR 1.03 (0.83-1.09)
[2018-02-18 17:10] LABS: PROTHROMBIN TIME (PATIENT) 12.1 SEC (9.7-13.0)
[2018-02-18 17:13] LABS: ACTIVATED PTT 26.4 SECONDS (25.2-36.5)
--- NOTE | 2018-02-18 17:47 | PDOC ---
History of Present Illness - General Chief Complaint: Blood Pressure Problem Stated Complaint: BLOOD PRESSURE PROBLEM Time Seen by Provider: 02/18/18 15:20 - History of Present Illness Initial Comments: 02/18/18 17:46 The patient is a 57 year old female, with a significant past medical history of diabetes, hypertension, hyperlipidemia, TIAX2, multiple ovarian cysts, TIAx2, and multiple abdominal surgeries (CSx2, cholecystectomy, partial hysterectomy, ovarian cyst removal, and partial colectomy to remove a portion of necrotic bowel), presents with 4 days of intermittent shortness of breath, headache, "needle-like" L sided chest pain and with elevated blood pressure to 140s-160s overnight. The patient denies any shortness of breath, nausea, diaphoresis, loss of consciousness, recent travel, recent long flights or car rides, recent fever, cough, runny nose or congestion. Additionally the patient complains of neck/thyroid pain. The patient has no other complaints at bedside. 02/18/18 20:34 Past History - Past Medical History Allergies/Adverse Reactions: Allergies Allergy/AdvReac Type Severity Reaction Status Date / Time No Known Allergies Allergy Verified 06/06/17 13:11 Home Medications: Ambulatory Orders Cholecalciferol (Vitamin D3) [Vitamin D3] 5,000 unit PO DAILY 02/18/18 Nebivolol HCl [Bystolic] 10 mg PO DAILY 02/18/18 COPD: No Diabetes: Yes (DIET CONTROLLED) HTN: Yes Hypercholesterolemia: Yes (does not take medication) - Surgical History Cholecystectomy: Yes - Immunization History Immunization Up to Date: Yes - Suicide/Smoking/Psychosocial Hx Smoking Status: No Smoking History: Never smoked Have you smoked in the past 12 months: No Number of Cigarettes Smoked Daily: 0 If you are a former smoker, when did you quit?: 12YRS Information on smoking cessation initiated: No Hx Alcohol Use: No Drug/Substance Use Hx: No Substance Use Type: None Hx Substance Use Treatment: No *Physical Exam - Vital Signs Last Vital Signs Temp Pulse Resp BP Pulse Ox 98.3 F 74 18 145/76 97 02/18/18 15:21 02/18/18 15:21 02/18/18 15:21 02/18/18 15:21 02/18/18 15:21 - Physical Exam Comments: 02/18/18 20:47 unremarkable neck fullness sligght tenderness to thyroid palpation Moderate Sedation - Procedure Monitoring Vital Signs: Procedure Monitoring Vital Signs Temperature 98.3 F 02/18/18 15:21 Pulse Rate 74 02/18/18 15:21 Respiratory Rate 18 02/18/18 15:21 Blood Pressure 145/76 02/18/18 15:21 O2 Sat by Pulse Oximetry (%) 97 02/18/18 15:21 ED Treatment Course - LABORATORY CBC & Chemistry Diagram: 02/18/18 15:37 02/18/18 15:37 - ADDITIONAL ORDERS Additional order review: Laboratory Results 02/18/18 02/18/18 15:37 15:37 PT with INR 12.10 INR 1.03 PTT (Actin FS) 26.4 Sodium 146 H Potassium 3.3 L Chloride 109 H Carbon Dioxide 30 Anion Gap 7 L BUN 10 Creatinine 0.8 Creat Clearance w eGFR > 60 Random Glucose 117 H Calcium 9.2 Total Bilirubin 1.6 H AST 18 ALT 23 Alkaline Phosphatase 74 Creatine Kinase 359 H Creatine Kinase Index 1.6 CK-MB (CK-2) 5.8 H Troponin I 0.02 Total Protein 6.8 Albumin 3.4 02/18/18 15:37 RBC 4.81 MCV 82.4 MCHC 32.0 RDW 14.2 MPV 8.3 Neutrophils % 46.9 Lymphocytes % 43.1 H Monocytes % 6.9 Eosinophils % 2.5 Basophils % 0.6 Medical Decision Making - Medical Decision Making 02/18/18 18:12 The patient is a 57 year old female, with a significant past medical history of diabetes, hypertension, hyperlipidemia, TIAX2, multiple ovarian cysts, TIAx2, and multiple abdominal surgeries (CSx2, cholecystectomy, partial hysterectomy, ovarian cyst removal, and partial colectomy to remove a portion of necrotic bowel), presents with 4 days of intermittent shortness of breath, headache, "needle-like" L sided chest pain and with elevated blood pressure to 140s-160s overnight. The patient denies any current chest pain, shortness of breath, nausea, diaphoresis, loss of consciousness, recent travel, recent long flights or car rides, recent fever, cough, runny nose or congestion. Additionally the patient complains of neck/ thyroid pain. The patient has no other complaints at bedside. ED Course: Patient seen in fast track. cbc, cmp, trop, ptt, pt/inr concern for acs vs copd vs pna cxr, tsh patient does not carry dx of copd but reports a previous history of smoking. EKG without acute findings, refer to attending note for report. All labwork unremarkable. Patient follows closely with pcp Homar will repeat Trop and trend 02/18/18 20:45 CXR: midline airway, appropriate vascular markings, no blunting of costophrenic angle, + cardiomegaly-baseline 02/18/18 22:35 *DC/Admit/Observation/Transfer Diagnosis at time of Disposition: Exertional dyspnea - Discharge Dispostion Disposition: HOME Condition at time of disposition: Stable Decision to Admit order: No - Referrals Referrals: Stephanie Graf MD [Primary Care Provider] - Jaspal Pascual MD [Staff Physician] - - Patient Instructions Printed Discharge Instructions: DI for Shortness of Breath Additional Instructions: You were seen in the ED for complaints of shortness of breath. In the ED you were evaluated with labwork and imaging. Your results were did not have significant findings. There does not appear to be an acute need for immediate hospitalization. You are advised to follow up with your Primary Care Physician within 1 week. You were given a referral to Cardiology and advised to follow up within 1 week. Return to the ED immediately if you experience worsening chest pain, shortness of breath, loss of consciousness, palpitations, fever, nausea or vomiting. - Post Discharge Activity Forms/Work/School Notes: Back to Work
[2018-02-18] MEDS ORDERED: POTASSIUM CHLORIDE TABS 20 MEQ TABLET.ER (FP) PO ONE ×2 (18:39→18:55)
--- NOTE | 2018-02-18 19:52 | PDOC ---
Attending Attestation - HPI HPI: This patient is a 57 year old female, with a significant past medical history of diabetes, hypertension, hyperlipidemia, TIAX2 (earlier 2018), multiple ovarian cysts, and multiple abdominal surgeries (CSx2, cholecystectomy, partial hysterectomy, ovarian cyst removal, and partial colectomy to remove a portion of necrotic bowel), who presents with 4 days of intermittent shortness of breath , headache, "needle-like" L sided chest pain and with elevated blood pressure to 140's-160's systolic overnight. Patient states that her headache begins at her neck, travels up to her right ear and radiates to the back of her head. Patient states no sob at rest, sob when she walk a few steps or exerts herself. Patient states that she was scheduled for an outpt MRI before but they did not have the Valium for her so she needs to reschedule the appt. She was advised to go to the ER. She denies any recent confusion or slurred speech. The patient denies any current nausea, diaphoresis, loss of consciousness, recent travel, recent long flights or car rides, recent fever, cough, runny nose or congestion. PCP: Stephanie Graf Allergies: NKDA 02/18/18 19:55 <Ning Bae - Last Filed: 02/18/18 19:55> - Resident Resident Name: Tayler Vera - ED Attending Attestation I have performed the following: I have examined & evaluated the patient, The case was reviewed & discussed with the resident, I agree w/resident's findings & plan, Exceptions are as noted - Physicial Exam PE: 02/18/18 20:37 wnwd 57 yo female reports 4 days of shortness of breath and anterior chest pain and headache she called Dr Kalpesh Graf's office today and they tols her to [place] to the ER 02/18/18 20:51 head ncat eyes anais eomi neck supple,no jvd lungs cta b/l cvs [id number] abd protuberant,no rebound,no guarding no cva tenderness ext no edema skin warm and dry neuro axox3,ambulatory,motor strength 5/5,b/l psych appropriate - Medical Decision Making 02/18/18 20:54 eKG bradycardia @ 66 bp,m, first degree AV block 02/18/18 22:32 2 NEGATIVE troponins cxr no infiltrates,no effusions pt to follow up w PCP <Sol Kincaid - Last Filed: 02/18/18 22:33>
[2018-02-18 22:09] VITALS: BP 136/84; PULSE 60; TEMP 97.8
--- NOTE | 2018-02-19 10:03 | EKG ---
Test Reason : Blood Pressure : / mmHG Vent. Rate : 066 BPM Atrial Rate : 066 BPM P-R Int : 212 ms QRS Dur : 082 ms QT Int : 400 ms P-R-T Axes : 070 020 011 degrees QTc Int : 419 ms SINUS RHYTHM WITH 1ST DEGREE A-V BLOCK OTHERWISE NORMAL ECG WHEN COMPARED WITH ECG OF 30-APR-2014 11:10, NO SIGNIFICANT CHANGE WAS FOUND Confirmed by Raheem Sanchez MD ([id number]) on 02/19/2018 10:03:13 AM Referred By: Confirmed By:Raheem Sanchez MD
[2018-02-19] MEDS ORDERED: POTASSIUM CHLORIDE TABS 10 MEQ TABLET.ER (FP) PO ONE (18:03)
== END 2018-02-18 22:59 | disposition home or self-care (01) ==
LOC: JER 15:05
DX: R06.09 Other forms of dyspnea (principal); I10 Essential (primary) hypertension; E78.5 Hyperlipidemia, unspecified; E11.9 Type 2 diabetes mellitus without complications; Z86.73 Personal history of transient ischemic attack (TIA), and cerebral infarction without residual deficits; Z87.891 Personal history of nicotine dependence
CPT/HCPCS: 36415; 71045-TC-FY; 80053; 82550; 82553; 84443; 84484; 85025; 85610; 85730; 93005; 93010; 99283-25

== ENCOUNTER → 2018-09-12 | Day surgery (SDC) | payer OTHER ==
--- NOTE | 2018-09-13 15:39 | PATH ---
Cytology Non-Gynecological Report Patient Name: CHAZ DALY [facility]. Rec. #: [id number] /Age/Gender: 1960 (Age: 58) / F Account: [id number] Location: RADIOLOGY INTER Taken: 09/12/2018 Received: 09/12/2018 Reported: 09/13/2018 Physicians: Suma Martinez M.D. Specimen(s) Received RIGHT THYROID FNA Clinical History Right, 4.29 x 2.62 x 3.49 cm Final Diagnosis THYROID, RIGHT, FINE NEEDLE ASPIRATION: SATISFACTORY FOR EVALUATION. BETHESDA CLASS II: BENIGN. CYTOLOGIC FINDINGS ARE CONSISTENT WITH A BENIGN FOLLICULAR NODULE WITH POST-HEMORRHAGIC CHANGE. SMALL FOLLICULAR CELLS IN A BACKGROUND OF COLLOID AND SCATTERED HEMOSIDERIN-LADEN MACROPHAGES. Electronically Signed Kaylyn Ballesteros M.D. Gross Description Received are eight direct smears, four of which are air-dried and Diff-Quik stained, and four of which are alcohol fixed and Pap stained. Also received is 20 ml of bloody formalin from which one cellblock is prepared.
== END | disposition home or self-care (01) ==
LOC: JRADIR 09:13
PROVIDERS: ATTEND Specialist
PROC: 0G9H3ZX Drainage of Right Thyroid Gland Lobe, Percutaneous Approach, Diagnostic (ICD-10-PCS; principal; 2018-09-12)
DX: E04.1 Nontoxic single thyroid nodule (principal)
CPT/HCPCS: 76942; 88173; 88305-TC

== ENCOUNTER 2018-10-04 09:50 | Inpatient (IN) | payer OTHER ==
--- NOTE | 2018-10-04 10:57 | HP ---
History & Physical Update - Physical Physical: No Change - Assessment Assessment: No Change - Plan Plan: No Change (Patient with bilateral enlarged thyroid nodules, right greater than left , with mediastinal extention , and tracheal deviation. FNA biopsy suggestive of benign multinodular thyroid goiter. Patient has been explained, of the procedure , including removal of mediastinal goiter , cervical approach, possible postoperative difficulty breathing, tracheomalacia, need for blood transfusion etc., All questions answered. Plan : Nearbtotal / total thyroidectomy.)
[2018-10-04] MEDS ORDERED: ROCURONIUM BROMIDE 50 MG/5 ML SYRINGE ONE ×2 (11:12→14:57)
[2018-10-04] MEDS ORDERED: DEXAMETHASONE SOD PHOSPHATE 4 MG/1 ML VIAL ONE (11:12)
[2018-10-04] MEDS ORDERED: PROPOFOL 20 ML ONE (11:12)
[2018-10-04] MEDS ORDERED: fentaNYL CITRATE 250 MCG/5 ML VIAL ONE (11:12)
[2018-10-04] MEDS ORDERED: SUCCINYLCHOLINE CHLORIDE 200 MG/10 ML SYRINGE ONE (11:12)
[2018-10-04] MEDS ORDERED: MIDAZOLAM HCL 2 MG/2 ML SINGLE DOSE VIAL ONE ×2 (11:13→11:30)
[2018-10-04] MEDS ORDERED: GLYCOPYRROLATE 0.2 MG/1 ML VIAL ONE (11:29)
[2018-10-04] MEDS ORDERED: LIDOCAINE HCL 4% PRESERVE-FREE 5 ML AMP ONE (11:32)
[2018-10-04] MEDS ORDERED: ceFAZolin SODIUM 1 GM VIAL IVPB ONE (12:50)
[2018-10-04] MEDS ORDERED: ESMOLOL HCL 100,000 MCG/10 ML VIAL ONE (13:07)
[2018-10-04] MEDS ORDERED: ONDANSETRON 4 MG/2 ML VIAL IVPUSH PRN ×2 (15:13→16:26)
[2018-10-04] MEDS ORDERED: LACTATED RINGERS SOLUTION 1,000 ML IV SCH (15:15)
[2018-10-04] MEDS ORDERED: HEPARIN NA (PORCINE) 5,000 UNITS/ML 1ML VIAL ONE (15:19)
[2018-10-04] MEDS ORDERED: PROPOFOL 1,000,000 MCG/100 ML VIAL IVPB SCH (15:30)
[2018-10-04] MEDS: PROPOFOL 1,000,000 MCG/100 ML VIAL IVPB SCH (16:10)
--- NOTE | 2018-10-04 16:20 | OP ---
Operative Note - Note: Operative Date: 10/04/18 Pre-Operative Diagnosis: Multinodular thyroid goiter,. Mediastinal goiter,. Tracheal compression and shift to the left of midline,. Dysphagia. Hypertension Operation: Total thyroidectomy. Findings: Multinodular thyroid goiter, with a large nodule on the right lobe extending to the upper mediastinum, Circumferential compression of the trachea with narrowing, by circumferential enlargement of the thyroid gland, No evidence of tracheomalacia. Post-Operative Diagnosis: Same as Pre-op Surgeon: Stella Arreola Welfare Adviser: Lb Caceres Anesthesia: General Specimens Removed: Total thyroidectomy. Estimated Blood Loss (mls): 40 Drains & Tubes with Location: No 14 Drain Operative Report Dictated: Yes
[2018-10-04] MEDS ORDERED: MIDAZOLAM HCL 5 MG/1 ML Single Dose Vial IVPUSH ONE (17:15)
[2018-10-04] MEDS: LACTATED RINGERS SOLUTION 1,000 ML IV SCH (17:16)
[2018-10-04] MEDS ORDERED: MIDAZOLAM HCL 5 MG/1 ML Single Dose Vial ONE ×2 (17:32→23:52)
[2018-10-04] MEDS: ENOXAPARIN NA (PORCINE) 30 MG/0.3 ML DISP.SYRIN SQ SCH (19:28)
--- NOTE | 2018-10-04 20:35 | CONSULT ---
Consultation: REQUESTING PROVIDER: Dr. Arreola CONSULT Service: ICU resident. HISTORY OF PRESENT ILLNESS: Patient is a 58 year old female with history of hypertension, hyperlipidemia, diabetes mellitus, TIA (in 2018) presents s/p total thyroidectomy, removal of mediastinal goiter, cervical approach, with complex repair of neck wound (10cms in length, in layers). Discussed with anesthesiology, given difficult airway, with likely edema, decision was made for patient to remain intubated tonight, until possible awake extubation with anesthesiology tomorrow. Patient currently hemodynamically stable, sedated on Propofol drip. Vent settings (per anesthesia): FiO2 50%, RR12, Tidal Volume 500cc, PEEP 0. REVIEW OF SYSTEMS: As per HPI. Unable to obtain further given patient's clinical condition. PHYSICAL EXAMINATION Vital Signs - 24 hr 10/04/18 10/04/18 10/04/18 10:18 16:05 16:20 Temperature 97.7 F 97.4 F L Pulse Rate 69 96 H 96 H Respiratory 16 20 18 Rate Blood Pressure 149/85 136/72 153/81 O2 Sat by Pulse 98 100 100 Oximetry (%) 10/04/18 10/04/18 10/04/18 16:35 16:50 17:05 Temperature Pulse Rate 117 H 98 H 99 H Respiratory 20 22 H 22 H Rate Blood Pressure 191/101 H 158/87 166/87 O2 Sat by Pulse 100 100 100 Oximetry (%) 10/04/18 10/04/18 10/04/18 17:20 17:35 17:50 Temperature Pulse Rate 75 74 76 Respiratory 20 18 20 Rate Blood Pressure 131/80 110/62 109/70 O2 Sat by Pulse 100 100 100 Oximetry (%) 10/04/18 10/04/18 10/04/18 18:05 18:20 18:35 Temperature Pulse Rate 74 76 74 Respiratory 20 18 18 Rate Blood Pressure 110/60 108/60 111/68 O2 Sat by Pulse 100 100 100 Oximetry (%) 10/04/18 10/04/18 10/04/18 18:40 19:05 19:35 Temperature Pulse Rate 74 76 68 Respiratory 20 18 18 Rate Blood Pressure 114/66 136/70 O2 Sat by Pulse 100 100 100 Oximetry (%) 10/04/18 19:55 Temperature 97.9 F Pulse Rate 66 Respiratory 16 Rate Blood Pressure 131/84 O2 Sat by Pulse 100 Oximetry (%) GENERAL: Intubated, sedated. In no acute distress. HEENT: NC/AT, PERRL, sclera anicteric, conjunctiva clear. NECK: Supple without lymphadenopathy. Negative stridor. LUNGS: Breath sounds equal, clear to auscultation bilaterally. No wheezes, and no crackles. No accessory muscle use. HEART: Regular rate and rhythm, normal S1 and S2 without murmur, rub or gallop. ABDOMEN: Soft, nontender, not distended, normoactive bowel sounds, no guarding, no rebound, no masses. No hepatomegaly or splenomegaly. EXTREMITIES: 2+ pulses, warm, well-perfused. No cyanosis. No peripheral edema. NEUROLOGICAL: Sedated on Propofol drip. SKIN: Warm, dry. Anterior neck surgical site clean, dry. RHODA drain right neck. Laboratory Results - last 24 hr 10/04/18 10/04/18 10/04/18 09:56 10:31 11:00 Potassium 3.2 L POC Glucometer 95 Blood Type Cancelled Antibody Screen Cancelled 10/04/18 12:55 Potassium POC Glucometer Blood Type A POSITIVE Antibody Screen Negative Active Medications Generic Name Dose Route Start Last Admin Trade Name Freq PRN Reason Stop Dose Admin Chlorhexidine Gluconate 1 applic 10/04/18 22:00 Hibiclens For Decolonization - TP HS ALISSON Enoxaparin Sodium 30 mg 10/04/18 16:26 10/04/18 19:28 Lovenox - SQ 30 mg DAILY ALISSON Administration Fentanyl 50 mcg 10/04/18 16:26 10/04/18 17:10 Sublimaze Injection - IVPUSH 50 mcg [id number] PRN Administration PAIN-PACU ORDER X 4 DOSES ONLY Lactated Ringer's 1,000 mls @ 75 mls/hr 10/04/18 16:26 10/04/18 17:16 Lactated Ringers Solution IV 300 mls ASDIR ALISSON Administration Propofol 1,000,000 mcg in 100 mls @ 2.654 mls/hr 10/04/18 16:26 10/04/18 16: 10 Diprivan - IVPB 100 mls TITR ALISSON Administration Protocol 5 MCG/KG/MIN Mupirocin 1 applic 10/04/18 22:00 Bactroban Ointment (For Decolonization) - NS 10/09/18 21:59 BID ALISSON Ondansetron HCl 4 mg 10/04/18 16:26 Zofran Injection IVPUSH Q6H PRN NAUSEA AND/OR VOMITING ASSESSMENT/PLAN: Patient is a 58 year old female with history of hypertension, hyperlipidemia, diabetes mellitus, TIA (in 2018) presents s/p total thyroidectomy, removal of mediastinal goiter, cervical approach. Neurologic -Patient sedated with Propfol drip. -Maintain sedated for ventilator synchrony. Cardiac History of hypertension -Patient currently normotensive. -Will reinstate patient's home Amlodipine once extubated. -Will need to discuss with surgery regarding reinstating patient's home Aspirin. Pulmonary -Patient intubated. Vent settings (per anesthesia): FiO2 50%, RR12, Tidal Volume 500cc, PEEP 0 -Per anesthesia, plan for awake extubation tomorrow, with anesthesia present at bedside. -Decadron 10mg IV [id number] -Maintain oxygen saturation greater than 90% Gastrointestinal -NPO while intubated. -Swallow evaluation once patient extubated. Endocrine S/P total thyroidectomy, removal of mediastinal goiter -General surgery recommendations (Dr. Arreola) appreciated. Infectious disease -WBC 10.2, likely reactive s/p surgical procedure. However patient remains afebrile. -Will culture, and consider initiating antibiotics if patient develops fever, or WBC count elevates. Renal -Hypokalemia. Replete with KCL IV. Follow repeat CMP. FEN -IV Lactated Ringer's at 75mL/ hour -Hypokalemia, hypomagnesemia, hypophosphatemia. Follow CMP, replete as necessary -NPO Prophylaxis -Lovenox 30mg subq daily Disposition: We will continue to follow the patient. Thank you for this consultative opportunity. Visit type - Emergency Visit Emergency Visit: No - New Patient This patient is new to me today: Yes Date on this admission: 10/05/18 - Critical Care Critical Care patient: Yes Total Critical Care Time (in minutes): 35 Critical Care Statement: The care of this patient involved high complexity decision making to prevent further life threatening deterioration of the patient 's condition and/or to evaluate & treat vital organ system(s) failure or risk of failure. ATTENDING PHYSICIAN STATEMENT I saw and evaluated the patient. I reviewed the resident's note and discussed the case with the resident. I agree with the resident's findings and plan as documented. SUBJECTIVE: OBJECTIVE: ASSESSMENT AND PLAN:
[2018-10-04] MEDS: DEXAMETHASONE SOD PHOSPHATE 10 MG/1 ML VIAL IVPB SCH (21:39)
[2018-10-04] MEDS: CHLORHEXIDINE GLUCONATE 4% CLEANSER FOR DECOLONIZATION TP SCH (21:39)
[2018-10-04] MEDS: MUPIROCIN 2% TOPICAL OINTMENT FOR DECOLONIZATION NS SCH (21:39)
[2018-10-04 22:18] LABS: MCH 27.3 pg (25.7-33.7); MCHC 33.4 g/dl (32.0-36.0); MEAN CELL VOLUME 81.7 fl (80-96); MEAN PLT VOLUME 8.8 fl (7.5-11.1); PLATELET COUNT 209 K/MM3 (134-434); RDW 13.8 % (11.6-15.6); WHITE BLOOD COUNT 10.2 K/mm3 (4.0-10.0)
[2018-10-04 23:08] LABS: BILIRUBIN,TOTAL 1.6 mg/dL (0.2-1); CALCIUM 8.8 mg/dL (8.5-10.1); MAGNESIUM 1.6 mg/dL (1.8-2.4); PHOSPHOROUS 1.8 mg/dL (2.5-4.9); TOT PROT 6.1 g/dl (6.4-8.2)
[2018-10-04 23:17] LABS: POTASSIUM 2.8 mmol/L (3.5-5.1)
[2018-10-04] MEDS ORDERED: MAGNESIUM SULF 50% (8.12 MEQ/2 ML-1 GM VIAL) IVPB ONE (23:41)
[2018-10-04] MEDS ORDERED: POTASSIUM PHOSPHATE 30 MM in SODIUM CHLORIDE 250 ML IVPB ONE (23:45)
[2018-10-05] MEDS: KCL 10 MEQ IVPB 10 MEQ/100 ML INFUS.BAG IVPB SCH ×5 (00:14→12:37)
[2018-10-05] MEDS ORDERED: MIDAZOLAM IN 0.9 % SOD.CHLORID 1 MG/1 ML PLAST..BAG ONE (01:02)
[2018-10-05] MEDS ORDERED: MIDAZOLAM 100 MG in SODIUM CHLORIDE 100 ML IVPB SCH (01:15)
[2018-10-05] MEDS: DEXAMETHASONE SOD PHOSPHATE 10 MG/1 ML VIAL IVPB SCH ×3 (05:59→20:28)
--- NOTE | 2018-10-05 06:46 | OP ---
DATE OF OPERATION: 10/04/2018 PREOPERATIVE DIAGNOSES: Multinodular thyroid goiter, mediastinal goiter with tracheal compression and shift of the trachea to the left of the midline, dysphagia, and hypertension. POSTOPERATIVE DIAGNOSES: 1. Multinodular thyroid goiter with a large nodule on the right lobe of the thyroid extending down to the upper mediastinum. 2. Circumferential compression of the trachea with narrowing by circumferential enlargement of the thyroid gland with multinodular goiter, with no evidence of tracheomalacia. OPERATIVE PROCEDURES: 1. Total thyroidectomy, including substernal thyroid by the cervical approach. 2. Removal of mediastinal goiter. 3. Repair of the neck wound. SURGEON: Suzanna Arreola MD TELEPHONE CLEANER: LINWOOD Corrales ANESTHESIA: General anesthesia. OPERATIVE DESCRIPTION: This 58-year-old woman was diagnosed to have large, multinodular thyroid goiter with compression and narrowing of the trachea with deviation of the trachea to the left as well as a large mediastinal component. The cytology of the goiter was benign, Greene class II; however, because patient had airway difficulty as well as dysphagia and change in voice, the patient was brought in for thyroidectomy. Risks, benefits, and complications were extensively discussed with the patient. Patient was brought to the operating room. General anesthesia was administered via endotracheal tube. There was difficulty for the anesthesiologist to intubate the patient; however, this was done using the fiberoptic scope. The patient was positioned with the neck in extension. The neck was painted and draped. Time-out was called. Patient was given a gram of Ancef, and a transverse skin incision was made 1 fingerbreadth above the clavicle from 1 sternocleidomastoid muscle to another. The incision was deepened through the skin, subcutaneous tissue, and the platysma muscle. Superior, inferior skin flaps were then raised between the platysma and the deep cervical fascia, superiorly up to the hyoid bone, inferiorly anterior to below the clavicle on either side. Laterally, sternocleidomastoid muscle was freed from the flap on either side, and dissection was carried all the way to the trapezius muscle. The strap muscles were then divided in the midline from the hyoid bone down to the suprasternal notch. The thyroid gland was exposed. There was a large, multinodular thyroid gland. This was carefully first on the right, then on the left. On the right side, there was a nodule in the upper pole, right lobe of the thyroid gland as well as in the body of the thyroid gland, which was wrapped around the thyroid cartilage on the trachea. This was carefully mobilized and brought anteriorly. There was a large nodule on the inferior pole of the right lobe of the thyroid gland, which extended below the clavicle down into the upper mediastinum. This was also carefully delivered into the wound in the neck and brought above the clavicle. Next, the left lobe of the thyroid gland was also mobilized. There was a large nodule wrapped around the trachea going all the way to the prevertebral and paravertebral space, around the trachea and the esophagus. This was also mobilized anteriorly and brought into the wound. Once this was done, the thyroid gland was then freed from its attachment. This was started from the upper pole of the left lobe of the thyroid gland. The superior thyroid vessels were divided as close to the gland as possible between clips and the LigaSure. The left superior parathyroid gland was identified and preserved intact with its blood supply. The inferior pole of the thyroid gland on the left was also then mobilized dividing the branches of the inferior thyroid artery as close to the gland as possible again between clips and the Harmonic scalpel. The middle thyroid vein was also divided between clips and the LigaSure. The inferior parathyroid gland was also identified and preserved with its blood supply intact. The gland was then mobilized medially. The left recurrent laryngeal nerve was also identified and preserved all along its course. The gland was then mobilized further medially dividing the Lynne ligament between clips and mobilizing the gland in front of the pretracheal fascia, across the isthmus and then towards the right. Hemostasis was maintained throughout the procedure. Next, the right lobe of the thyroid gland was then mobilized starting from the mediastinal nodule and the goiter. All vessels were divided as close to the gland as possible between clips and the LigaSure. The right parathyroid gland was also identified and preserved with its blood supply intact. The upper pole of the right lobe of the thyroid gland was similarly mobilized dividing the vessels as close to the gland as possible and mobilizing it medially towards the trachea. The middle thyroid vein on the right side was also divided between clips and the LigaSure. The gland was then mobilized medially toward the Lynne ligament. The inferior thyroid vessel with its branches going to the parathyroid was preserved throughout the procedure. The right recurrent laryngeal nerve was identified and followed all the way to its insertion under the cricothyroid muscle, and this was maintained intact. The thyroidectomy was completed, and the specimen was sent to Pathology, and this was suggestive of a multinodular goiter, and frozen section was not done. Hemostasis was satisfactory at the completion of the procedure. The wound was irrigated. There was no bleeding. Both recurrent laryngeal nerves were intact, and the parathyroid gland was preserved looking normally without any hematoma and any evidence of necrosis. A No. 14 drain was left into the wound and brought out through a stab wound on the right side of the neck. The strap muscles were approximated with buried interrupted 3-0 Vicryl sutures. The platysma was similarly approximated with buried interrupted 3-0 Vicryl sutures. Subcutaneous fat was approximated with 4-0 Biosyn sutures, and the skin was approximated with running 4-0 subcuticular fashion. Sponge count, instrument count were correct. The neck wound was repaired by approximating the skin with careful approximation with 4-0 subcuticular sutures. Estimated blood loss was about 40 mL. An x-ray of the neck and upper chest was then taken to make certain that there was no foreign body. Sponge count was correct at the completion of the procedure. A suture was placed with 2-0 Prolene around the drain exit, and a small dressing was applied. Dermabond was applied across the skin edges. Suma [id number]
[2018-10-05 07:02] LABS: HEMATOCRIT 33.1 % (32.4-45.2); HEMOGLOBIN 11.6 GM/dL (10.7-15.3); MCH 28.5 pg (25.7-33.7); MCHC 35.2 g/dl (32.0-36.0); MEAN PLT VOLUME 9.4 fl (7.5-11.1); PLATELET COUNT 222 K/MM3 (134-434); RBC 4.09 M/mm3 (3.60-5.2); RDW 13.9 % (11.6-15.6); WHITE BLOOD COUNT 9.3 K/mm3 (4.0-10.0)
[2018-10-05 07:22] LABS: ALBUMIN 2.5 g/dl (3.4-5.0); BILIRUBIN,TOTAL 1.3 mg/dL (0.2-1); BLOOD UREA NITROGEN 10.9 mg/dL (7-18); CALCIUM 7.5 mg/dL (8.5-10.1); CREATININE 0.6 mg/dL (0.55-1.3); MAGNESIUM 1.6 mg/dL (1.8-2.4); PHOSPHOROUS 2.2 mg/dL (2.5-4.9); POTASSIUM 3.1 mmol/L (3.5-5.1); TOT PROT 5.5 g/dl (6.4-8.2)
--- NOTE | 2018-10-05 08:56 | CONSULT ---
Consult - text type - Consultation Consultation Note: PULMONARY/CRITICAL CARE MEDICINE CONSULT HPI: Briefly, 58 y/o F w/HTN, HLD, DM and prior TIA who underwent total thyroidectomy/mediastinal goiter by Dr Arreola yesterday. She was a difficult intubation and there was concern for post-op airway edema therefore she was admitted to the ICU o/n and placed on steroids with the plan to extubate this afternoon w/anesthesia. She is currently heavily sedated on Propofol and Midazolam Current Medications Chlorhexidine Gluconate (Hibiclens For Decolonization -) 1 applic TP HS ALISSON Last Admin: 10/04/18 21:39 Dose: 1 applic Dexamethasone Sodium Phosphate (Decadron Injection -) 10 mg IVPB Q8H ALISSON Last Admin: 10/05/18 05:59 Dose: 10 mg Enoxaparin Sodium (Lovenox -) 30 mg SQ DAILY ALISSON Last Admin: 10/04/18 19:28 Dose: 30 mg Fentanyl (Sublimaze Injection -) 50 mcg IVPUSH [id number] PRN PRN Reason: PAIN-PACU ORDER X 4 DOSES ONLY Last Admin: 10/04/18 17:10 Dose: 50 mcg Lactated Ringer's (Lactated Ringers Solution) 1,000 mls @ 75 mls/hr IV ASDIR ALISSON Last Admin: 10/04/18 17:16 Dose: 300 mls Propofol (Diprivan -) 1,000,000 mcg in 100 mls @ 2.654 mls/hr IVPB TITR [facility]; Protocol Last Titration: 10/05/18 01:45 Dose: 70 mcg/kg/min, 37.149 mls/hr Midazolam HCl 100 mg/ Sodium (Chloride) 100 mls @ 1 mls/hr IVPB TITR ALISSON; Protocol Last Titration: 10/05/18 01:45 Dose: 6 mg/hr, 6 mls/hr Mupirocin (Bactroban Ointment (For Decolonization) -) 1 applic NS BID ALISSON Stop: 10/09/18 21:59 Last Admin: 10/04/18 21:39 Dose: 1 applic Ondansetron HCl (Zofran Injection) 4 mg IVPUSH Q6H PRN PRN Reason: NAUSEA AND/OR VOMITING Vital Signs Temp 98.7 F 10/05/18 06:00 Pulse 74 08/24/19 08:00 Resp 21 H 10/05/18 08:28 BP 117/69 10/05/18 08:00 Pulse Ox 99 10/05/18 08:28 Intake & Output 10/04/18 10/05/18 10/05/18 18:59 06:59 18:59 Intake Total 2800 2014.8 Output Total 480 4100 Balance 2320 -2085.2 Weight 93.123 kg Intake: IV 2800 1328.8 DIPRIVAN - 1,000,000 mcg 462.9 In 100 ml @ 5 MCG/KG/MIN 2.654 mls/hr IVPB TITR ALISSON Rx#:[id number] Lactated Ringers Solution 823 1,000 ml @ 75 mls/hr IV ASDIR ALISSON Rx#:[id number] Versed - 100 mg In Normal 42.9 Saline - 100 ml @ 1 MG/ HR 1 mls/hr IVPB TITR ALISSON Rx#:[id number] IVPB 686 Output: Urine 300 4100 Bello 1800 Estimated Blood Loss 30 Other 150 Other: Voiding Method Indwelling Catheter Indwelling Catheter Bowel Movement No Weight Measurement Method Built in Bedscale EXAM: neuro: deeply sedated, withdraws to pain HEENT: PERRL, dry MM, neck soft, skin incision clean and approximated, covered in derm-a-del real Lungs: clear Heart: RRR, S1 S2 Abd: obese, soft Ext: warm, no edema CBC, BMP 10/05/18 05:50 10/05/18 05:50 ASSESSMENT: -Benign thyroid/substernal goiter s/p resection -Post-operative respiratory failure -History of a difficult airway with possible airway edema -HTN -HLD -DM -Obesity PLAN: -Continue Propofol, switch Midazolam to Fentanyl and wean sedation in preparation for extubation with anesthesia this afternoon -PSV -Continue steroids per ENT -NPO -DVT PPx with Lovenox -Will need Gi PPx if remains on mechanical ventilation Thank you for this interesting consult Critically ill - Critical Care time 45min Alexis Heredia Pulm/Critical Care [employer]
[2018-10-05] MEDS ORDERED: FENTANYL INJECTION 500 MCG in DEXTROSE 5%-WATER - 90 ML IVPB SCH (09:00)
[2018-10-05] MEDS ORDERED: fentaNYL CITRATE 250 MCG/5 ML VIAL ONE (09:14)
[2018-10-05] MEDS: MUPIROCIN 2% TOPICAL OINTMENT FOR DECOLONIZATION NS SCH ×2 (09:31→22:49)
[2018-10-05] MEDS: ENOXAPARIN NA (PORCINE) 30 MG/0.3 ML DISP.SYRIN SQ SCH (09:31)
[2018-10-05] MEDS: PROPOFOL 1,000,000 MCG/100 ML VIAL IVPB SCH ×2 (09:34→09:40)
[2018-10-05] MEDS: LACTATED RINGERS SOLUTION 1,000 ML IV SCH ×2 (09:38→18:58)
--- NOTE | 2018-10-05 11:19 | PN ---
Progress Note, Physician Chief Complaint: s/p Total Thyroidectomy History of Present Illness: Previous notes and events reviewed patient sedated mechincally ventilated patient to be extubated by anesthesia this afternoon IV propafol for sedation K 3.1 - Current Medication List Current Medications: Active Medications Chlorhexidine Gluconate (Hibiclens For Decolonization -) 1 applic TP HS [facility] Last Admin: 10/04/18 21:39 Dose: 1 applic Dexamethasone Sodium Phosphate (Decadron Injection -) 10 mg IVPB Q8H [facility] Last Admin: 10/05/18 05:59 Dose: 10 mg Enoxaparin Sodium (Lovenox -) 30 mg SQ DAILY [facility] Last Admin: 10/05/18 09:31 Dose: 30 mg Fentanyl (Sublimaze Injection -) 100 mcg IVPUSH Q1H PRN PRN Reason: PAIN LEVEL 7 - 10 Stop: 10/06/18 08:59 Fentanyl (Sublimaze Injection -) 50 mcg IVPUSH Q1H PRN PRN Reason: PAIN LEVEL 4 - 6 Stop: 10/06/18 08:57 Lactated Ringer's (Lactated Ringers Solution) 1,000 mls @ 75 mls/hr IV ASDIR [facility] Last Admin: 10/05/18 09:38 Dose: 75 mls/hr Propofol (Diprivan -) 1,000,000 mcg in 100 mls @ 2.654 mls/hr IVPB TITR [facility]; Protocol Last Admin: 10/05/18 09:34 Dose: 70 mcg/kg/min, 37.149 mls/hr Fentanyl 500 mcg/ Dextrose 100 mls @ 10 mls/hr IVPB TITR [facility] Last Admin: 10/05/18 09:29 Dose: 50 mcg/hr, 10 mls/hr Mupirocin (Bactroban Ointment (For Decolonization) -) 1 applic NS BID [facility] Stop: 10/09/18 21:59 Last Admin: 10/05/18 09:31 Dose: 1 applic Ondansetron HCl (Zofran Injection) 4 mg IVPUSH Q6H PRN PRN Reason: NAUSEA AND/OR VOMITING - Objective Vital Signs: Vital Signs Temperature 98.7 F 10/05/18 06:00 Pulse Rate 75 10/05/18 08:00 Respiratory Rate 21 H 10/05/18 08:28 Blood Pressure 117/69 10/05/18 08:00 O2 Sat by Pulse Oximetry (%) 99 10/05/18 08:28 Constitutional: Yes: Other (sedated) HENT: Yes: Atraumatic Neck: Yes: Other (surgical incision) Cardiovascular: Yes: Regular Rate and Rhythm Respiratory: Yes: Regular, CTA Bilaterally, Mechanically Ventilated Gastrointestinal: Yes: Normal Bowel Sounds, Soft Genitourinary: Yes: Bello Present Musculoskeletal: Yes: Muscle Weakness Extremities: Yes: WNL Edema: No Integumentary: Yes: Other (surgical incision, base of neck) Wound/Incision: Yes: Open to air Neurological: Yes: Other (sedated) Labs: CBC, BMP 10/05/18 05:50 10/05/18 05:50 Problem List - Problems (1) Hypertension Assessment/Plan: -BP meds on hold -monitor BP Code(s): I10 - ESSENTIAL (PRIMARY) HYPERTENSION (2) Thyromegaly Assessment/Plan: -POD #1 total thyroidectomy/mediastinal goiter -intubated and sedated--anesthesia attempt to extubate today -mechanically ventilated-TV 300, PEEP 5, O2 50%, rate 12 -RHODA x 1 noted with no drainage -surgery on board and recommendation appreciated -afebrile and no leukocytosis post surgery Code(s): E04.9 - NONTOXIC GOITER, UNSPECIFIED (3) Hypokalemia Assessment/Plan: -K 3.1 -KCl 10mEq IVPB x 2 -monitor electrolyte and repelete as needed Code(s): E87.6 - HYPOKALEMIA Assessment/Plan see problem list dvt ppx
[2018-10-05] MEDS ORDERED: RAPID SEQUENCE INTUBATION KIT NR ONE (14:20)
[2018-10-05] MEDS ORDERED: RACEPINEPHRINE IH SOL 2.25% 11.25 MG/0.5 ML VIAL NEB ONE (14:21)
--- NOTE | 2018-10-05 16:31 | PN ---
Progress Note, Physician - Current Medication List Current Medications: Active Medications Chlorhexidine Gluconate (Hibiclens For Decolonization -) 1 applic TP HS [facility] Last Admin: 10/04/18 21:39 Dose: 1 applic Dexamethasone Sodium Phosphate (Decadron Injection -) 10 mg IVPB Q8H [facility] Last Admin: 10/05/18 12:39 Dose: 10 mg Enoxaparin Sodium (Lovenox -) 30 mg SQ DAILY [facility] Last Admin: 10/05/18 09:31 Dose: 30 mg Lactated Ringer's (Lactated Ringers Solution) 1,000 mls @ 75 mls/hr IV ASDIR [facility] Last Admin: 10/05/18 09:38 Dose: 75 mls/hr Mupirocin (Bactroban Ointment (For Decolonization) -) 1 applic NS BID [facility] Stop: 10/09/18 21:59 Last Admin: 10/05/18 09:31 Dose: 1 applic Ondansetron HCl (Zofran Injection) 4 mg IVPUSH Q6H PRN PRN Reason: NAUSEA AND/OR VOMITING - Objective Vital Signs: Vital Signs Temperature 97.7 F 10/05/18 10:00 Pulse Rate 95 H 10/05/18 14:37 Respiratory Rate 17 10/05/18 14:00 Blood Pressure 147/87 10/05/18 14:00 O2 Sat by Pulse Oximetry (%) 99 10/05/18 14:37 Labs: CBC, BMP 10/05/18 05:50 10/05/18 05:50 Assessment/Plan Surgery: Patient is just extubated, about an hour ago. Awake and communicating. Neck : no swelling, wound is clean. Drain is removed, no drainage from drain. Serum calcium is 7.7 , will monitor serum calcium. Resume oral feeding. Continue to monitor in ICU.
[2018-10-05] MEDS ORDERED: MORPHINE SULFATE 2 MG/ML VIAL IVPUSH PRN (19:56)
[2018-10-05] MEDS: MORPHINE SULFATE 2 MG/ML VIAL IVPUSH PRN (20:28)
[2018-10-05] MEDS: CHLORHEXIDINE GLUCONATE 4% CLEANSER FOR DECOLONIZATION TP SCH (22:49)
[2018-10-05] MEDS ORDERED: PT OWN MED DRAWER 7, Y5N ONE (23:27)
[2018-10-05] MEDS: CALCIUM CARBONATE SUSPENSION - 500 MG/5 ML ML PO SCH (23:30)
[2018-10-06] MEDS: MORPHINE SULFATE 2 MG/ML VIAL IVPUSH PRN (03:30)
[2018-10-06] MEDS: DEXAMETHASONE SOD PHOSPHATE 10 MG/1 ML VIAL IVPB SCH ×3 (05:34→22:00)
[2018-10-06 06:11] LABS: HEMATOCRIT 34.9 % (32.4-45.2); HEMOGLOBIN 11.8 GM/dL (10.7-15.3); MCH 27.4 pg (25.7-33.7); MCHC 33.8 g/dl (32.0-36.0); MEAN CELL VOLUME 81.2 fl (80-96); MEAN PLT VOLUME 8.8 fl (7.5-11.1); PLATELET COUNT 214 K/MM3 (134-434); RBC 4.31 M/mm3 (3.60-5.2); RDW 14.3 % (11.6-15.6); WHITE BLOOD COUNT 12.5 K/mm3 (4.0-10.0)
[2018-10-06 06:41] LABS: ALBUMIN 2.8 g/dl (3.4-5.0); BILIRUBIN,TOTAL 1.2 mg/dL (0.2-1); CALCIUM 8.1 mg/dL (8.5-10.1); CREATININE 0.7 mg/dL (0.55-1.3); POTASSIUM 3.4 mmol/L (3.5-5.1); TOT PROT 6.1 g/dl (6.4-8.2)
--- NOTE | 2018-10-06 07:12 | PN ---
Progress Note (short form) - Note Progress Note: PULMONARY/CRITICAL CARE MEDICINE PROGRESS NOTE: SUBJECTIVE: Pt seen and examined in the ICU. Extubated yesterday without incident Remained stable overnight Pain controlled Off Oxygen OBJECTIVE: Current Medications Calcium Carbonate (Calcium Carb Oral Suspension -) 500 mg PO BID [facility] Last Admin: 10/05/18 23:30 Dose: 500 mg Chlorhexidine Gluconate (Hibiclens For Decolonization -) 1 applic TP HS [facility] Last Admin: 10/05/18 22:49 Dose: 1 applic Dexamethasone Sodium Phosphate (Decadron Injection -) 10 mg IVPB Q8H [facility] Last Admin: 10/06/18 05:34 Dose: 10 mg Enoxaparin Sodium (Lovenox -) 30 mg SQ DAILY [facility] Last Admin: 10/05/18 09:31 Dose: 30 mg Lactated Ringer's (Lactated Ringers Solution) 1,000 mls @ 75 mls/hr IV ASDIR [facility] Last Admin: 10/05/18 18:58 Dose: Not Given Morphine Sulfate (Morphine Sulfate) 4 mg IVPUSH Q4H PRN PRN Reason: PAIN LEVEL 6-10 Last Admin: 10/06/18 03:30 Dose: 4 mg Morphine Sulfate (Morphine Sulfate) 2 mg IVPUSH Q4H PRN PRN Reason: PAIN LEVEL 1-5 Mupirocin (Bactroban Ointment (For Decolonization) -) 1 applic NS BID [facility] Stop: 10/09/18 21:59 Last Admin: 10/05/18 22:49 Dose: 1 applic Ondansetron HCl (Zofran Injection) 4 mg IVPUSH Q6H PRN PRN Reason: NAUSEA AND/OR VOMITING Vital Signs Temp 98.0 F 10/05/18 20:27 Pulse 58 L 10/06/18 06:00 Resp 13 10/06/18 06:00 BP 137/75 10/06/18 06:00 Pulse Ox 83 L 10/05/18 23:23 Intake & Output 10/05/18 10/06/18 10/06/18 18:59 06:59 18:59 Intake Total 307 04100 Output Total 500 1000 Balance -193 77729 Weight 93.531 kg Intake: IV 307 42711 DIPRIVAN - 1,000,000 mcg 232 In 100 ml @ 5 MCG/KG/MIN 2.654 mls/hr IVPB TITR [facility] Rx#:[id number] Lactated Ringers Solution 98796 1,000 ml @ 75 mls/hr IV ASDIR [facility] Rx#:[id number] Sublimaze Injection - 500 42 Mcg In D5w - 90 ml @ 50 MCG/HR 10 mls/hr IVPB TITR [facility] Rx#:[id number] Versed - 100 mg In Normal 33 Saline - 100 ml @ 1 MG/ HR 1 mls/hr IVPB TITR [facility] Rx#:[id number] IVPB 750 Oral 220 Output: Urine 500 1000 A[place]illo 500 1000 Other: Voiding Method Indwelling Catheter Indwelling Catheter Bowel Movement No Weight Measurement Method Built in 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
[2018-10-06] MEDS ORDERED: PT OWN MED DRAWER 7, Y5N ONE ×2 (09:14→20:27)
[2018-10-06] MEDS: ACETAMINOPHEN 325 MG TABLET (FP) PO PRN ×2 (09:18→18:43)
[2018-10-06] MEDS: ENOXAPARIN NA (PORCINE) 30 MG/0.3 ML DISP.SYRIN SQ SCH (09:19)
[2018-10-06] MEDS: CALCIUM CARBONATE SUSPENSION - 500 MG/5 ML ML PO SCH ×2 (09:19→23:13)
[2018-10-06] MEDS: MUPIROCIN 2% TOPICAL OINTMENT FOR DECOLONIZATION NS SCH ×2 (09:21→22:00)
[2018-10-06] MEDS ORDERED: POTASSIUM CHLORIDE ORAL LIQUID 20 MEQ/15 ML PO ONE (09:50)
--- NOTE | 2018-10-06 09:52 | PN ---
Progress Note, Physician Chief Complaint: s/p Total Thyroidectomy History of Present Illness: Previous notes and events reviewed patient extubated awake and alert NAD tolerating oral diet sts having mild pain at surgical wound site K 3.4 - Current Medication List Current Medications: Active Medications Acetaminophen (Tylenol -) 650 mg PO Q4H PRN PRN Reason: PAIN LEVEL 1 - 3 Last Admin: 10/06/18 09:18 Dose: 650 mg Calcium Carbonate (Calcium Carb Oral Suspension -) 500 mg PO BID [facility] Last Admin: 10/06/18 09:19 Dose: 500 mg Chlorhexidine Gluconate (Hibiclens For Decolonization -) 1 applic TP HS [facility] Last Admin: 10/05/18 22:49 Dose: 1 applic Dexamethasone Sodium Phosphate (Decadron Injection -) 10 mg IVPB Q8H [facility] Last Admin: 10/06/18 05:34 Dose: 10 mg Enoxaparin Sodium (Lovenox -) 30 mg SQ DAILY [facility] Last Admin: 10/06/18 09:19 Dose: 30 mg Mupirocin (Bactroban Ointment (For Decolonization) -) 1 applic NS BID [facility] Stop: 10/09/18 21:59 Last Admin: 10/06/18 09:21 Dose: 1 applic Ondansetron HCl (Zofran Injection) 4 mg IVPUSH Q6H PRN PRN Reason: NAUSEA AND/OR VOMITING - Objective Vital Signs: Vital Signs Temperature 98.0 F 10/05/18 20:27 Pulse Rate 61 10/06/18 08:00 Respiratory Rate 14 10/06/18 08:00 Blood Pressure 125/72 10/06/18 08:00 O2 Sat by Pulse Oximetry (%) 95 10/06/18 07:35 Constitutional: Yes: No Distress, Calm Eyes: Yes: Conjunctiva Clear HENT: Yes: Atraumatic Neck: Yes: Other (surgical incision) Cardiovascular: Yes: Regular Rate and Rhythm Respiratory: Yes: Regular, CTA Bilaterally Gastrointestinal: Yes: Normal Bowel Sounds, Soft Musculoskeletal: Yes: Muscle Weakness Extremities: Yes: WNL Edema: No Neurological: Yes: Alert, Oriented Psychiatric: Yes: Alert, Oriented Labs: CBC, BMP 10/06/18 05:45 10/06/18 05:45 Problem List - Problems (1) Hypertension Assessment/Plan: -BP meds on hold -monitor BP Code(s): I10 - ESSENTIAL (PRIMARY) HYPERTENSION (2) Thyromegaly Assessment/Plan: -POD #2 total thyroidectomy/mediastinal goiter -patient extubated -RHODA drain removed -surgery on board and recommendation appreciated -afebrile and no leukocytosis post surgery Code(s): E04.9 - NONTOXIC GOITER, UNSPECIFIED (3) Hypokalemia Assessment/Plan: -K 3.4 -KCl 20mEq PO x 1 dose -monitor electrolyte and repelete as needed Code(s): E87.6 - HYPOKALEMIA Assessment/Plan see problem list dvt ppx
[2018-10-06 14:40] VITALS: BMI 34.2
[2018-10-06] MEDS: CHLORHEXIDINE GLUCONATE 4% CLEANSER FOR DECOLONIZATION TP SCH (23:13)
[2018-10-07] MEDS: DEXAMETHASONE SOD PHOSPHATE 10 MG/1 ML VIAL IVPB SCH ×3 (05:28→20:25)
[2018-10-07 06:19] LABS: HEMATOCRIT 33.3 % (32.4-45.2); HEMOGLOBIN 11.3 GM/dL (10.7-15.3); MCH 27.7 pg (25.7-33.7); MCHC 33.8 g/dl (32.0-36.0); MEAN CELL VOLUME 81.9 fl (80-96); PLATELET COUNT 218 K/MM3 (134-434); RBC 4.06 M/mm3 (3.60-5.2); RDW 14.5 % (11.6-15.6); WHITE BLOOD COUNT 9.9 K/mm3 (4.0-10.0)
[2018-10-07 06:48] LABS: ALBUMIN 2.9 g/dl (3.4-5.0); BLOOD UREA NITROGEN 18.5 mg/dL (7-18); CALCIUM 8.3 mg/dL (8.5-10.1); CREATININE 0.8 mg/dL (0.55-1.3); POTASSIUM 3.3 mmol/L (3.5-5.1)
[2018-10-07] MEDS: ACETAMINOPHEN 325 MG TABLET (FP) PO PRN ×3 (08:34→23:21)
[2018-10-07] MEDS ORDERED: POTASSIUM CHLORIDE TABS 20 MEQ TABLET.ER (FP) PO ONE ×2 (08:55→12:04)
--- NOTE | 2018-10-07 08:55 | PN ---
Progress Note, Physician Chief Complaint: AWAKE ALERT EVENTS AND NOTES REVIEWED PATIENT S/P INTUBATION AFTER THYROIDECTOMY - Current Medication List Current Medications: Active Medications Acetaminophen (Tylenol -) 650 mg PO Q4H PRN PRN Reason: PAIN LEVEL 1 - 3 Last Admin: 10/07/18 08:34 Dose: 650 mg Calcium Carbonate (Calcium Carb Oral Suspension -) 500 mg PO BID [facility] Last Admin: 10/06/18 23:13 Dose: Not Given Chlorhexidine Gluconate (Hibiclens For Decolonization -) 1 applic TP HS [facility] Last Admin: 10/06/18 23:13 Dose: 1 applic Dexamethasone Sodium Phosphate (Decadron Injection -) 10 mg IVPB Q8H [facility] Last Admin: 10/07/18 05:28 Dose: 10 mg Enoxaparin Sodium (Lovenox -) 30 mg SQ DAILY [facility] Last Admin: 10/06/18 09:19 Dose: 30 mg Mupirocin (Bactroban Ointment (For Decolonization) -) 1 applic NS BID [facility] Stop: 10/09/18 21:59 Last Admin: 10/06/18 22:00 Dose: 1 applic Ondansetron HCl (Zofran Injection) 4 mg IVPUSH Q6H PRN PRN Reason: NAUSEA AND/OR VOMITING - Objective Vital Signs: Vital Signs Temperature 98.0 F 10/06/18 20:00 Pulse Rate 60 10/07/18 06:00 Respiratory Rate 20 10/07/18 06:00 Blood Pressure 143/79 10/07/18 06:00 O2 Sat by Pulse Oximetry (%) 96 10/06/18 21:00 Constitutional: Yes: Mild Distress HENT: Yes: Other (CLEAN SCAR) Cardiovascular: Yes: Regular Rate and Rhythm Respiratory: Yes: WNL, On Nasal O2 Gastrointestinal: Yes: WNL Genitourinary: Yes: WNL Musculoskeletal: Yes: Muscle Weakness Edema: No Integumentary: Yes: Other Neurological: Yes: Pre-Existing Deficit Labs: CBC, BMP 10/07/18 05:45 10/07/18 05:45 Problem List - Problems (1) S/P thyroidectomy Code(s): Z98.890 - OTHER SPECIFIED POSTPROCEDURAL STATES (2) Airway compromise Code(s): J98.8 - OTHER SPECIFIED RESPIRATORY DISORDERS (3) Exertional dyspnea Code(s): R06.09 - OTHER FORMS OF DYSPNEA (4) Hypertension Code(s): I10 - ESSENTIAL (PRIMARY) HYPERTENSION (5) Thyromegaly Code(s): E04.9 - NONTOXIC GOITER, UNSPECIFIED Assessment/Plan S/P EXTUBATION AFTER AIRWAY COMPRIMISED FROM THYROIDECTOMY SURGERY. ADA D/W PATIENT STRICT DIET AND WEIGHT LOSS OOB TO CHAIR DC PLANNING IN MORNING
[2018-10-07] MEDS ORDERED: PT OWN MED DRAWER 7, Y5N ONE ×2 (09:01→21:42)
[2018-10-07] MEDS: ENOXAPARIN NA (PORCINE) 30 MG/0.3 ML DISP.SYRIN SQ SCH (09:42)
[2018-10-07] MEDS: MUPIROCIN 2% TOPICAL OINTMENT FOR DECOLONIZATION NS SCH (09:42)
[2018-10-07] MEDS: CALCIUM CARBONATE SUSPENSION - 500 MG/5 ML ML PO SCH ×2 (09:43→09:50)
--- NOTE | 2018-10-07 11:50 | PN ---
Physical Exam: SUBJECTIVE: Patient seen and examined at bedside. No acute overnight events. Patient was extubated over the weekend; has had no issues breathing or swallowing. No complaints, no pain, no chest pain or sob. Patient is ambulating to restroom on her own. OBJECTIVE: Vital Signs Period Temp Pulse Resp BP Sys/Kuo Pulse Ox Last 24 Hr 97.8 F-98.5 F 46-85 12-20 129-154/66-96 96 GEN: Well appearing, NAD, comfortable. AAOx3 HEENT: NC/AT, EOMI. No facial asymmetry. Moist mucous membranes. Normal voice. Supple neck w/ FROM. Scar is dry, clean, intact, w/o exudate, bleeding, or discharge CV: S1/S2, RRR, no m/r/g LUNG: CTAB, no wheezes, crackles, rales, rhonchi. GI: soft, ndnt, +BS, no guarding, no rebound. Neg CVAT b/l. No masses. EXTREMITIES: No LE edema. No obvious deformities of all extremities. SKIN: warm, dry, normal turgor PSYCH: normal mood and affect NEURO: Moving all extremities well. Gait not assessed. Laboratory Results - last 24 hr 10/06/18 10/06/18 10/07/18 12:10 16:09 05:45 WBC RBC Hgb Hct MCV MCH MCHC RDW Plt Count MPV Sodium 146 H Potassium 3.3 L Chloride 109 H Carbon Dioxide 30 Anion Gap 7 L BUN 18.5 H Creatinine 0.8 Est GFR (CKD-EPI)AfAm 93.53 Est GFR (CKD-EPI)NonAf 80.70 POC Glucometer 145 131 Random Glucose 139 H Calcium 8.3 L Total Bilirubin 1.0 AST 20 ALT 28 Alkaline Phosphatase 58 Total Protein 6.0 L Albumin 2.9 L 10/07/18 05:45 WBC 9.9 RBC 4.06 Hgb 11.3 Hct 33.3 MCV 81.9 MCH 27.7 MCHC 33.8 RDW 14.5 Plt Count 218 MPV 9.0 Sodium Potassium Chloride Carbon Dioxide Anion Gap BUN Creatinine Est GFR (CKD-EPI)AfAm Est GFR (CKD-EPI)NonAf POC Glucometer Random Glucose Calcium Total Bilirubin AST ALT Alkaline Phosphatase Total Protein Albumin Active Medications Generic Name Dose Route Start Last Admin Trade Name Freq PRN Reason Stop Dose Admin Acetaminophen 650 mg 10/06/18 07:58 10/07/18 08:34 Tylenol - PO 650 mg Q4H PRN Administration PAIN LEVEL 1 - 3 Calcium Carbonate 500 mg 10/05/18 22:00 10/07/18 09:50 Calcium Carb Oral Suspension - PO Not Given BID [facility] Chlorhexidine Gluconate 1 applic 10/04/18 22:00 10/06/18 23:13 Hibiclens For Decolonization - TP 1 applic HS [facility] Administration Dexamethasone Sodium Phosphate 10 mg 10/04/18 21:00 10/07/18 05:28 Decadron Injection - IVPB 10 mg Q8H [facility] Administration Enoxaparin Sodium 30 mg 10/04/18 16:26 10/07/18 09:42 Lovenox - SQ 30 mg DAILY [facility] Administration Mupirocin 1 applic 10/04/18 22:00 10/07/18 09:42 Bactroban Ointment (For Decolonization) - NS 10/09/18 21:59 1 applic BID [facility] Administration Ondansetron HCl 4 mg 10/04/18 16:26 Zofran Injection IVPUSH Q6H PRN NAUSEA AND/OR VOMITING ASSESSMENT/PLAN: 58F in ICU s/p goiter resection. Extubated over the weekend; has had no difficulty with respiratory. Airway clear. Patient is afebrile, vital signs stable, with benign exam. Surgical site is well healing, c/d/i. Potassium of 3.3. For transfer to med/surg LUNG - s/p intubation s/p goiter resection - extubated 10/05/18 - breathing on RA w/ normal effort RENAL - hypokalemia on labs - Potassium low @ 3.3 - Will replete K - obtain mg, phos lvls FENGI - tolerating PO - ambulating to restroom DVT PPX: LVX DISPO: transfer to med/surg Visit type - Emergency Visit Emergency Visit: Yes ED Registration Date: 10/04/18 Care time: The patient presented to the Emergency Department on the above date and was hospitalized for further evaluation of their emergent condition. - New Patient This patient is new to me today: Yes Date on this admission: 10/07/18 - Critical Care Critical Care patient: Yes Total Critical Care Time (in minutes): 30 Critical Care Statement: The care of this patient involved high complexity decision making to prevent further life threatening deterioration of the patient 's condition and/or to evaluate & treat vital organ system(s) failure or risk of failure.
--- NOTE | 2018-10-07 12:40 | PN ---
Teaching Attending Note Name of Resident: Chris Vu ATTENDING PHYSICIAN STATEMENT I saw and evaluated the patient. I reviewed the resident's note and discussed the case with the resident. I agree with the resident's findings and plan as documented. SUBJECTIVE: Pt seen and examined in the ICU. Denies shortness of breath or dysphagia. OBJECTIVE: Vital Signs Period Temp Pulse Resp BP Sys/Kuo Pulse Ox Last 24 Hr 97.8 F-98.5 F 46-85 14-20 129-154/66-96 96 Intake & Output 10/04/18 10/05/18 10/06/18 10/07/18 23:59 23:59 23:59 23:59 Intake Total 2800 29655.8 1935 100 Output Total 2780 2400 1200 Balance 20 23842.8 735 100 Weight 93.123 kg 93.44 kg Gen: NAD at rest Heart: RRR Lung: decreased breath sounds at the bases Abd: soft, nontender Ext: no edema CBC, BMP 10/07/18 05:45 10/07/18 05:45 Active Medications Acetaminophen (Tylenol -) 650 mg PO Q4H PRN PRN Reason: PAIN LEVEL 1 - 3 Last Admin: 10/07/18 08:34 Dose: 650 mg Calcium Carbonate (Calcium Carb Oral Suspension -) 500 mg PO BID [facility] Last Admin: 10/07/18 09:50 Dose: Not Given Chlorhexidine Gluconate (Hibiclens For Decolonization -) 1 applic TP HS [facility] Last Admin: 10/06/18 23:13 Dose: 1 applic Dexamethasone Sodium Phosphate (Decadron Injection -) 10 mg IVPB Q8H [facility] Last Admin: 10/07/18 05:28 Dose: 10 mg Enoxaparin Sodium (Lovenox -) 30 mg SQ DAILY [facility] Last Admin: 10/07/18 09:42 Dose: 30 mg Mupirocin (Bactroban Ointment (For Decolonization) -) 1 applic NS BID [facility] Stop: 10/09/18 21:59 Last Admin: 10/07/18 09:42 Dose: 1 applic Ondansetron HCl (Zofran Injection) 4 mg IVPUSH Q6H PRN PRN Reason: NAUSEA AND/OR VOMITING ASSESSMENT AND PLAN: s/p Thyroidectomy Post op Respiratory Failure HTN DM Hyperlipidemia Morbid Obesity - can d/c steroids - PO as tolerated - DVT prophylaxis - can monitor on floor - d/c planning
[2018-10-07 15:20] LABS: MAGNESIUM 2.1 mg/dL (1.8-2.4); PHOSPHOROUS 3.6 mg/dL (2.5-4.9)
--- NOTE | 2018-10-07 16:34 | PN ---
Progress Note, Physician - Current Medication List Current Medications: Active Medications Acetaminophen (Tylenol -) 650 mg PO Q4H PRN PRN Reason: PAIN LEVEL 1 - 3 Last Admin: 10/07/18 15:10 Dose: 650 mg Calcium Carbonate (Calcium Carb Oral Suspension -) 500 mg PO BID [facility] Last Admin: 10/07/18 09:50 Dose: Not Given Chlorhexidine Gluconate (Hibiclens For Decolonization -) 1 applic TP HS [facility] Last Admin: 10/06/18 23:13 Dose: 1 applic Dexamethasone Sodium Phosphate (Decadron Injection -) 10 mg IVPB Q8H [facility] Last Admin: 10/07/18 12:45 Dose: 10 mg Enoxaparin Sodium (Lovenox -) 30 mg SQ DAILY [facility] Last Admin: 10/07/18 09:42 Dose: 30 mg Mupirocin (Bactroban Ointment (For Decolonization) -) 1 applic NS BID [facility] Stop: 10/09/18 21:59 Last Admin: 10/07/18 09:42 Dose: 1 applic Ondansetron HCl (Zofran Injection) 4 mg IVPUSH Q6H PRN PRN Reason: NAUSEA AND/OR VOMITING - Objective Vital Signs: Vital Signs Temperature 98.2 F 10/07/18 12:00 Pulse Rate 60 10/07/18 14:00 Respiratory Rate 16 10/07/18 14:00 Blood Pressure 142/77 10/07/18 14:00 O2 Sat by Pulse Oximetry (%) 96 10/06/18 21:00 Labs: CBC, BMP 10/07/18 05:45 10/07/18 05:45 Assessment/Plan Surgery: Patient is alert , feeling better, Sje is informed of operative finfings, No seroma, Her voice has improved. She can swallow with ease. Serum calcium 8.3 mgm Will start on levothyroxine Po. Already on calcium carbonate PO Discharge tomorrow by Dr. Homar tubbs.
[2018-10-07] MEDS ORDERED: ONDANSETRON 4 MG/2 ML VIAL IVPUSH PRN (22:54)
[2018-10-08] MEDS: CHLORHEXIDINE GLUCONATE 4% CLEANSER FOR DECOLONIZATION TP SCH (00:51)
[2018-10-08] MEDS: MUPIROCIN 2% TOPICAL OINTMENT FOR DECOLONIZATION NS SCH (00:51)
[2018-10-08] MEDS: CALCIUM CARBONATE SUSPENSION - 500 MG/5 ML ML PO SCH (00:51)
[2018-10-08 02:32] VITALS: TEMP 98.6
[2018-10-08] MEDS ORDERED: DEXAMETHASONE SOD PHOSPHATE 10 MG/1 ML VIAL IVPB SCH (05:00)
[2018-10-08] MEDS: ACETAMINOPHEN 325 MG TABLET (FP) PO PRN ×2 (06:05→11:20)
[2018-10-08 06:58] LABS: BASO % 0.4 % (0-2.0); HEMATOCRIT 34.6 % (32.4-45.2); HEMOGLOBIN 11.7 GM/dL (10.7-15.3); LYMPH % 18.2 % (8-40); MCH 27.6 pg (25.7-33.7); MCHC 33.7 g/dl (32.0-36.0); MEAN CELL VOLUME 81.9 fl (80-96); MONO % 5.1 % (3.8-10.2); NEUT % 76.3 % (42.8-82.8); PLATELET COUNT 218 K/MM3 (134-434); RBC 4.23 M/mm3 (3.60-5.2); RDW 14.1 % (11.6-15.6); WHITE BLOOD COUNT 8.6 K/mm3 (4.0-10.0)
[2018-10-08 07:11] LABS: BLOOD UREA NITROGEN 19.2 mg/dL (7-18); CALCIUM 8.4 mg/dL (8.5-10.1); CREATININE 0.8 mg/dL (0.55-1.3); MAGNESIUM 2.3 mg/dL (1.8-2.4); PHOSPHOROUS 3.4 mg/dL (2.5-4.9); POTASSIUM 3.5 mmol/L (3.5-5.1)
[2018-10-08] MEDS ORDERED: CALCIUM CARBONATE SUSPENSION - 500 MG/5 ML ML PO SCH (10:00)
[2018-10-08] MEDS ORDERED: ENOXAPARIN NA (PORCINE) 30 MG/0.3 ML DISP.SYRIN SQ SCH (10:00)
[2018-10-08 11:25] VITALS: BP 150/77; PULSE 56
--- NOTE | 2018-10-08 12:52 | DS ---
Physical Examination Vital Signs: Vital Signs Temperature 98.6 F 10/08/18 05:35 Pulse Rate 56 L 10/08/18 09:00 Respiratory Rate 18 10/08/18 09:00 Blood Pressure 150/77 10/08/18 09:00 O2 Sat by Pulse Oximetry (%) 97 10/07/18 21:00 Constitutional: Yes: No Distress Cardiovascular: Yes: Regular Rate and Rhythm Respiratory: Yes: WNL Gastrointestinal: Yes: WNL Labs: CBC, BMP 10/08/18 06:25 10/08/18 06:25 Discharge Summary Reason For Visit: THYROID GOITER Current Active Problems Airway compromise (Acute) Hypokalemia (Acute) S/P thyroidectomy (Acute) Procedures: Principal: THYROIDECTOMY Hospital Course: RESPIRATORY COMPLICATIONS AFTER INTUBATION, REMAINED INTUBATED UNTIL SWELLING RESOLVED. PATIENT AWAKE ALERT EXTUBATED X 2 DAYS DOING WELL. CAN LEAVE TODAY. Condition: Good - Instructions Diet, Activity, Other Instructions: Follow up in my office ( Dr. Arreola) , call [phone] , to be seen on 06/2018 , at 4.[address] BAKER IN 2 WEEKS [phone] Disposition: HOME - Home Medications Comprehensive Discharge Medication List: Ambulatory Orders Cholecalciferol (Vitamin D3) [Vitamin D3] 50,000 unit PO WEEKLY 02/18/18 Amlodipine Besylate 5 mg PO DAILY 10/02/18 Aspirin [ASA -] 81 mg PO DAILY 10/02/18 Metformin HCl [Glucophage] 500 mg PO [facility] 10/04/18 Calcium Carbonate 500 gm MC BID #20 tab 10/06/18
[2018-10-08] MEDS ORDERED: CHLORHEXIDINE GLUCONATE 4% CLEANSER FOR DECOLONIZATION TP SCH (22:00)
--- NOTE | 2018-10-11 09:35 | PATH ---
Surgical Pathology Report Patient Name: CHAZ DALY [facility]. Rec. #: [id number] /Age/Gender: 1960 (Age: 58) / F Account: [id number] Location: [address] [place] [address] Taken: 10/04/2018 Received: 10/07/2018 Reported: 10/11/2018 Physicians: Suzanna Arreola M.D. Specimen(s) Received TOTAL THYRIODECTOMY Clinical History Thyroid goiter Final Diagnosis THYROID, TOTAL THYROIDECTOMY: THYROID TISSUE WITH HYPERPLASTIC NODULES (MULTINODULAR GOITER). Electronically Signed Waldo Worthy M.D. Gross Description Received in formalin, labeled "total thyroidectomy" is a thyroid weighing 70 g. No orientation is provided. The left thyroid measures 9.0 x 2.5 x 1.3 cm. The right thyroid and isthmus measure 7.0 x 6.0 x 2.5 cm. The external surface is inked blue. Serial sections of the left thyroid reveal 6 nodular lesions ranging from 0.3 cm to 1.0 cm. The right thyroid shows focal disruption and defect near the lower pole. Serial section of the right thyroid and isthmus reveal multiple nodular lesions ranging from 0.5-3 cm. The largest nodule show hemorrhagic heterogenous cut surfaces. Separate fragments of varela soft tissue grossly consistent with thyroid parenchyma measuring 3.0 x 3.0 x 1.0cm in aggregate is present. Security Officer sections submitted in 19 cassettes. 1 to 5: left thyroid with nodules; 6 to 10: Largest nodule from right thyroid; 11-12: one nodule of right thyroid; 13-18: other nodules; 19: soft tissue KWS/10/07/2018 sulki/10/07/2018
== END 2018-10-08 13:59 | disposition home or self-care (01) | DRG 404 ==
LOC: JASU-SURG 09:50 → JSAMEDAYSX 09:51 → JICU 20:14 → J6S 10-07 20:50
PROVIDERS: ADMIT Specialist; ATTEND Specialist
PROC: 5A1935Z Respiratory Ventilation, Less than 24 Consecutive Hours (ICD-10-PCS; 2018-10-04)
PROC: 0BH17EZ Insertion of Endotracheal Airway into Trachea, Via Natural or Artificial Opening (ICD-10-PCS; 2018-10-04)
PROC: 0GTK0ZZ Resection of Thyroid Gland, Open Approach (ICD-10-PCS; principal; 2018-10-04 11:30)
DX: E04.2 Nontoxic multinodular goiter (principal); E87.6 Hypokalemia; E83.51 Hypocalcemia; E11.9 Type 2 diabetes mellitus without complications; I10 Essential (primary) hypertension; E66.01 Morbid (severe) obesity due to excess calories; Z68.34 Body mass index [BMI] 34.0-34.9, adult; E78.5 Hyperlipidemia, unspecified; J95.821 Acute postprocedural respiratory failure; E83.39 Other disorders of phosphorus metabolism; R13.10 Dysphagia, unspecified
CPT/HCPCS: 36415; 70360-TC-FY; 71045-TC-FY; 80048; 80053; 82962; 83735; 84100; 84132; 85025; 85027; 86850; 86900; 86901; 88307-TC; 94002; 94760; 97116-GP; 97161-GP; J1100; J1644

== ENCOUNTER 2020-03-08 13:36 | Inpatient (IN) | payer OTHER ==
[2020-03-08] MEDS ORDERED: DEXAMETHASONE SOD PHOSPHATE 4 MG/1 ML VIAL IVPUSH ONE (14:25)
[2020-03-08] MEDS ORDERED: ACETAMINOPHEN 1000 MG/100 ML VIAL (NON FORMULARY) IVPB ONE (14:26)
[2020-03-08] MEDS ORDERED: ACETAMINOPHEN INJECTION 100 ML IVPB ONE (14:50)
[2020-03-08] MEDS ORDERED: DEXAMETHASONE SOD PHOSPHATE 10 MG/1 ML VIAL ONE (14:50)
[2020-03-08] MEDS ORDERED: CEFTRIAXONE 1,000 MG in DEXTROSE 5%-WATER - 50 ML IVPB ONE (15:13)
[2020-03-08] MEDS ORDERED: AZITHROMYCIN IVPB 500 MG in DEXTROSE 5%-WATER - 250 ML IVPB ONE (15:13)
[2020-03-08 15:22] LABS: BASO % 0.3 % (0-2.0); HEMATOCRIT 37.9 % (32.4-45.2); HEMOGLOBIN 12.7 GM/dL (10.7-15.3); LYMPH % 10.6 % (8-40); MCH 27.2 pg (25.7-33.7); MCHC 33.6 g/dl (32.0-36.0); MEAN CELL VOLUME 81.1 fl (80-96); MEAN PLT VOLUME 9.8 fl (7.5-11.1); MONO % 4.3 % (3.8-10.2); NEUT % 84.8 % (42.8-82.8); PLATELET COUNT 139 K/MM3 (134-434); RBC 4.67 M/mm3 (3.60-5.2); RDW 14.2 % (11.6-15.6); WHITE BLOOD COUNT 7.1 K/mm3 (4.0-10.0)
[2020-03-08 15:23] LABS: VENOUS O2 SATURATION 66.4 % (70-80); VENOUS PCO2 47.2 mmHg (38-52); VENOUS PH 7.426 (7.310-7.410)
[2020-03-08] MEDS ORDERED: AZITHROMYCIN IVPB 500 MG/250 ML BAG IVPB ONE (15:24)
[2020-03-08] MEDS ORDERED: CEFTRIAXONE 1 GM/50 ML BAG ONE (15:24)
[2020-03-08 15:38] LABS: CHLORIDE 99 mmol/L (98-107); SODIUM 136 mmol/L (136-145)
[2020-03-08 15:40] LABS: CALCIUM 8.3 mg/dL (8.5-10.1)
[2020-03-08 15:41] LABS: ALBUMIN 3.2 g/dl (3.4-5.0); BLOOD UREA NITROGEN 12.7 mg/dL (7-18); CO2 30 mmol/L (21-32); GLUCOSE,RANDOM 288 mg/dL (74-106)
[2020-03-08 15:44] LABS: BILIRUBIN,DIRECT 0.3 mg/dL (0.0-0.2); CREATININE 1.1 mg/dL (0.55-1.3); SGOT/AST 102 U/L (15-37); SGPT/ALT 52 U/L (13-61)
[2020-03-08 15:45] LABS: BILIRUBIN,TOTAL 0.7 mg/dL (0.2-1); TOT PROT 7.6 g/dl (6.4-8.2)
[2020-03-08 15:46] LABS: ALK PHOS 67 U/L (45-117)
[2020-03-08 15:50] LABS: LDH 513 U/L (84-246)
[2020-03-08] MEDS ORDERED: LACTATED RINGERS SOLUTION 1000 ML INFUS.BAG IV ONE (15:50)
[2020-03-08 15:56] LABS: INR 1.08 (0.83-1.09)
[2020-03-08 15:59] LABS: ACTIVATED PTT 31.8 SECONDS (25.2-36.5)
[2020-03-08 16:07] LABS: ANION GAP 7 MMOL/L (8-16)
[2020-03-08 16:19] LABS: POTASSIUM 2.7 mmol/L (3.5-5.1)
[2020-03-08] MEDS ORDERED: POTASSIUM CHLORIDE TABS 20 MEQ TABLET.ER (FP) PO ONE ×2 (16:44→16:51)
[2020-03-08] MEDS ORDERED: KCL 10 MEQ IVPB 10 MEQ/100 ML INFUS.BAG IVPB ONE (16:51)
[2020-03-08 16:58] LABS: EPI CELLS >36 /uL (0-25.1); HYALINE CASTS 11 /uL (0-3.1); URINE APPEARANCE CLOUDY; URINE BACTERIA 171 /uL (0-1359); URINE BILIRUBIN NEGATIVE (NEGATIVE); URINE COLOR YELLOW; URINE GLUCOSE (UA) 1+ (NEGATIVE); URINE KETONE NEGATIVE (NEGATIVE); URINE LEUK ESTERASE NEGATIVE (NEGATIVE); URINE NITRITE NEGATIVE (NEGATIVE); URINE PROTEIN 3+ (NEGATIVE); URINE RBC 359 /uL (0-23.9); URINE UROBILINOGEN 0.2 mg/dL (0.2-1.0); URINE WBC 30 /uL (0-25.8)
[2020-03-08] MEDS: KCL 10 MEQ IVPB 10 MEQ/100 ML INFUS.BAG IVPB SCH ×3 (17:05→20:43)
[2020-03-08] MEDS: INSULIN SLIDING SCALE (NOVOLOG) 1 VIAL SQ SCH ×2 (17:24→22:37)
[2020-03-08] MEDS ORDERED: KCL 10 MEQ IVPB 20 MEQ/200 ML INFUS.BAG IVPB ONE (18:02)
[2020-03-08] MEDS: ZINC SULFATE 220 MG CAPSULE (FP) PO SCH (22:24)
[2020-03-08] MEDS: ASCORBIC ACID 500 MG TABLET (FP) PO SCH (22:24)
[2020-03-09 07:32] LABS: BASO % 0.1 % (0-2.0); HEMOGLOBIN 12.3 GM/dL (10.7-15.3); LYMPH % 9.8 % (8-40); MCH 27.5 pg (25.7-33.7); MCHC 34.2 g/dl (32.0-36.0); MEAN CELL VOLUME 80.2 fl (80-96); MEAN PLT VOLUME 9.5 fl (7.5-11.1); MONO % 5.4 % (3.8-10.2); NEUT % 84.7 % (42.8-82.8); PLATELET COUNT 162 K/MM3 (134-434); RBC 4.48 M/mm3 (3.60-5.2); RDW 14.4 % (11.6-15.6); WHITE BLOOD COUNT 8.3 K/mm3 (4.0-10.0)
[2020-03-09 07:51] LABS: CALCIUM 8.4 mg/dL (8.5-10.1)
[2020-03-09 07:52] LABS: ALBUMIN 2.8 g/dl (3.4-5.0); BLOOD UREA NITROGEN 13.1 mg/dL (7-18)
[2020-03-09 07:55] LABS: PHOSPHOROUS 1.7 mg/dL (2.5-4.9)
[2020-03-09 07:57] LABS: BILIRUBIN,TOTAL 0.5 mg/dL (0.2-1); TOT PROT 7.1 g/dl (6.4-8.2)
[2020-03-09] MEDS: INSULIN SLIDING SCALE (NOVOLOG) 1 VIAL SQ SCH ×4 (08:27→21:11)
[2020-03-09] MEDS ORDERED: ACETAMINOPHEN 325 MG TABLET (FP) ONE (08:45)
[2020-03-09] MEDS: ACETAMINOPHEN 325 MG TABLET (FP) PO PRN ×2 (08:46→23:26)
[2020-03-09 08:55] LABS: MAGNESIUM 2.1 mg/dL (1.8-2.4)
[2020-03-09] MEDS ORDERED: CEFTRIAXONE 1 GM in DEXTROSE 5%-WATER - 50 ML IVPB SCH (10:00)
[2020-03-09] MEDS ORDERED: ASCORBIC ACID 500 MG TABLET (FP) ONE (10:58)
[2020-03-09] MEDS ORDERED: DEXAMETHASONE SOD PHOSPHATE 10 MG/1 ML VIAL ONE (10:59)
[2020-03-09] MEDS ORDERED: amLODIPine BESYLATE 5 MG TABLET (FP) ONE (10:59)
[2020-03-09] MEDS ORDERED: ASPIRIN 81 MG CHEWABLE TABLETS ONE (10:59)
[2020-03-09] MEDS ORDERED: ZINC SULFATE 220 MG CAPSULE (FP) ONE (10:59)
[2020-03-09] MEDS ORDERED: CHOLECALCIFEROL (VIT D3) 1,000 UNIT (25 MCG) TABLET ONE (11:00)
[2020-03-09] MEDS ORDERED: ENOXAPARIN NA (PORCINE) 40 MG/0.4 ML DISP.SYRIN SQ ONE (11:00)
[2020-03-09] MEDS ORDERED: CEFTRIAXONE 1 GM/50 ML BAG ONE ×2 (11:00)
[2020-03-09] MEDS ORDERED: AZITHROMYCIN IVPB 500 MG/250 ML BAG IVPB ONE (11:00)
[2020-03-09] MEDS: CHOLECALCIFEROL (VIT D3) 5000 UNITS (125 MCG) CAP PO SCH (11:06)
[2020-03-09] MEDS: ENOXAPARIN NA (PORCINE) 40 MG/0.4 ML DISP.SYRIN SQ SCH (11:06)
[2020-03-09] MEDS: amLODIPine BESYLATE 5 MG TABLET (FP) PO SCH (11:06)
[2020-03-09] MEDS: DEXAMETHASONE 4 MG TABLET (FP) PO SCH (11:06)
[2020-03-09] MEDS: ZINC SULFATE 220 MG CAPSULE (FP) PO SCH ×2 (11:06→21:11)
[2020-03-09] MEDS: ASCORBIC ACID 500 MG TABLET (FP) PO SCH ×2 (11:06→21:11)
[2020-03-09] MEDS: ASPIRIN 81 MG CHEWABLE TABLETS PO SCH (11:07)
[2020-03-09] MEDS: AZITHROMYCIN IVPB 250 MG in DEXTROSE 5%-WATER - 250 ML IVPB SCH (11:16)
[2020-03-09] MEDS ORDERED: REMDESIVIR 200 MG in SODIUM CHLORIDE 210 ML IVPB ONE (13:00)
[2020-03-09] MEDS ORDERED: INSULIN (NOVOLOG) ASPART 100 UNITS/ML 10ML VIAL ONE ×2 (17:19→20:32)
[2020-03-09] MEDS ORDERED: POTASSIUM CHLORIDE TABS 20 MEQ TABLET.ER (FP) PO ONE (18:50)
[2020-03-10] MEDS: INSULIN SLIDING SCALE (NOVOLOG) 1 VIAL SQ SCH ×4 (06:07→21:26)
[2020-03-10] MEDS ORDERED: ALBUTEROL SO4 HFA INHALER IH PRN (06:16)
[2020-03-10 07:48] LABS: HEMATOCRIT 38.4 % (32.4-45.2); HEMOGLOBIN 12.9 GM/dL (10.7-15.3); MCH 27.2 pg (25.7-33.7); MCHC 33.7 g/dl (32.0-36.0); MEAN CELL VOLUME 80.6 fl (80-96); PLATELET COUNT 225 K/MM3 (134-434); RBC 4.76 M/mm3 (3.60-5.2); RDW 14.6 % (11.6-15.6); WHITE BLOOD COUNT 11.3 K/mm3 (4.0-10.0)
[2020-03-10 08:33] LABS: CALCIUM 8.9 mg/dL (8.5-10.1)
[2020-03-10 08:34] LABS: BLOOD UREA NITROGEN 16.2 mg/dL (7-18)
[2020-03-10 08:37] LABS: CREATININE 0.9 mg/dL (0.55-1.3)
[2020-03-10] MEDS ORDERED: PT OWN MED DRAWER 7, Y5N ONE (10:02)
[2020-03-10] MEDS: CHOLECALCIFEROL (VIT D3) 5000 UNITS (125 MCG) CAP PO SCH (10:04)
[2020-03-10] MEDS: ENOXAPARIN NA (PORCINE) 40 MG/0.4 ML DISP.SYRIN SQ SCH (10:04)
[2020-03-10] MEDS: ASPIRIN 81 MG CHEWABLE TABLETS PO SCH (10:04)
[2020-03-10] MEDS: DEXAMETHASONE 4 MG TABLET (FP) PO SCH (10:04)
[2020-03-10] MEDS: ZINC SULFATE 220 MG CAPSULE (FP) PO SCH ×2 (10:04→21:05)
[2020-03-10] MEDS: amLODIPine BESYLATE 5 MG TABLET (FP) PO SCH (10:04)
[2020-03-10] MEDS: ASCORBIC ACID 500 MG TABLET (FP) PO SCH ×2 (10:04→21:05)
[2020-03-10] MEDS: AZITHROMYCIN IVPB 250 MG in DEXTROSE 5%-WATER - 250 ML IVPB SCH (10:04)
[2020-03-10] MEDS: ACETAMINOPHEN 325 MG TABLET (FP) PO PRN (10:13)
[2020-03-10] MEDS: ALBUTEROL SO4 HFA INHALER IH SCH ×3 (13:58→21:05)
[2020-03-10] MEDS: REMDESIVIR 100 MG in SODIUM CHLORIDE 230 ML IVPB SCH (13:58)
[2020-03-10] MEDS: BUDESONIDE/FORMETEROL FUMARATE 160/4.5 mcg INHALER IH SCH ×2 (15:27→21:05)
[2020-03-10] MEDS ORDERED: POTASSIUM CHLORIDE TABS 20 MEQ TABLET.ER (FP) PO ONE (18:17)
[2020-03-10] MEDS: KCL 10 MEQ IVPB 10 MEQ/100 ML INFUS.BAG IVPB SCH ×2 (18:38→20:00)
[2020-03-10] MEDS ORDERED: INSULIN (NOVOLOG) ASPART 100 UNITS/ML 10ML VIAL ONE (19:59)
[2020-03-11] MEDS: KCL 10 MEQ IVPB 10 MEQ/100 ML INFUS.BAG IVPB SCH ×4 (00:03→18:15)
[2020-03-11] MEDS: ACETAMINOPHEN 325 MG TABLET (FP) PO PRN (04:44)
[2020-03-11] MEDS: INSULIN SLIDING SCALE (NOVOLOG) 1 VIAL SQ SCH ×4 (06:15→21:28)
[2020-03-11 08:03] LABS: POTASSIUM 3.3 mmol/L (3.5-5.1)
[2020-03-11 08:04] LABS: HEMATOCRIT 36.8 % (32.4-45.2); HEMOGLOBIN 12.3 GM/dL (10.7-15.3); MCH 27.1 pg (25.7-33.7); MCHC 33.6 g/dl (32.0-36.0); MEAN CELL VOLUME 80.9 fl (80-96); PLATELET COUNT 228 K/MM3 (134-434); RBC 4.54 M/mm3 (3.60-5.2); RDW 14.2 % (11.6-15.6); WHITE BLOOD COUNT 9.3 K/mm3 (4.0-10.0)
[2020-03-11 08:10] LABS: ALBUMIN 2.6 g/dl (3.4-5.0); BLOOD UREA NITROGEN 15.9 mg/dL (7-18)
[2020-03-11 08:11] LABS: BILIRUBIN,TOTAL 0.7 mg/dL (0.2-1)
[2020-03-11 08:12] LABS: CALCIUM 8.5 mg/dL (8.5-10.1); TOT PROT 6.9 g/dl (6.4-8.2)
[2020-03-11 08:13] LABS: CREATININE 0.8 mg/dL (0.55-1.3)
[2020-03-11] MEDS ORDERED: PT OWN MED DRAWER 7, Y5N ONE (09:51)
[2020-03-11] MEDS: ALBUTEROL SO4 HFA INHALER IH SCH ×4 (09:52→20:28)
[2020-03-11] MEDS: ASCORBIC ACID 500 MG TABLET (FP) PO SCH ×2 (09:53→21:27)
[2020-03-11] MEDS: CHOLECALCIFEROL (VIT D3) 5000 UNITS (125 MCG) CAP PO SCH (09:53)
[2020-03-11] MEDS: ZINC SULFATE 220 MG CAPSULE (FP) PO SCH ×2 (09:53→21:27)
[2020-03-11] MEDS: BUDESONIDE/FORMETEROL FUMARATE 160/4.5 mcg INHALER IH SCH ×2 (09:53→21:30)
[2020-03-11] MEDS: ASPIRIN 81 MG CHEWABLE TABLETS PO SCH (09:53)
[2020-03-11] MEDS: DEXAMETHASONE SOD PHOSPHATE 4 MG/1 ML VIAL IVPUSH SCH (09:53)
[2020-03-11] MEDS: amLODIPine BESYLATE 5 MG TABLET (FP) PO SCH (09:53)
[2020-03-11] MEDS: ENOXAPARIN NA (PORCINE) 40 MG/0.4 ML DISP.SYRIN SQ SCH ×2 (09:53→21:27)
[2020-03-11] MEDS ORDERED: POTASSIUM CHLORIDE TABS 20 MEQ TABLET.ER (FP) PO ONE (10:15)
[2020-03-11 10:30] LABS: ERYTHROCYTE SEDIMENTATION RATE 102 mm/hr (0-30)
[2020-03-11] MEDS: REMDESIVIR 100 MG in SODIUM CHLORIDE 230 ML IVPB SCH (13:35)
[2020-03-11] MEDS: AZITHROMYCIN IVPB 250 MG in DEXTROSE 5%-WATER - 250 ML IVPB SCH (14:41)
[2020-03-11] MEDS: MORPHINE SULFATE 2 MG/ML VIAL IVPUSH PRN (17:12)
[2020-03-11] MEDS ORDERED: INSULIN (NOVOLOG) ASPART 100 UNITS/ML 10ML VIAL ONE (21:10)
[2020-03-12] MEDS: INSULIN SLIDING SCALE (NOVOLOG) 1 VIAL SQ SCH ×4 (06:36→21:14)
[2020-03-12 08:00] LABS: INR 1.17 (0.83-1.09); PROTHROMBIN TIME (PATIENT) 14.1 SEC (9.7-13.0)
[2020-03-12 08:07] LABS: CALCIUM 8.5 mg/dL (8.5-10.1)
[2020-03-12 08:08] LABS: ALBUMIN 2.9 g/dl (3.4-5.0); BLOOD UREA NITROGEN 14.5 mg/dL (7-18); MAGNESIUM 1.8 mg/dL (1.8-2.4)
[2020-03-12 08:11] LABS: CREATININE 0.8 mg/dL (0.55-1.3); PHOSPHOROUS 2.1 mg/dL (2.5-4.9)
[2020-03-12 08:12] LABS: BILIRUBIN,TOTAL 1.8 mg/dL (0.2-1); TOT PROT 7.7 g/dl (6.4-8.2)
[2020-03-12 08:25] LABS: HEMATOCRIT 40.2 % (32.4-45.2); HEMOGLOBIN 13.7 GM/dL (10.7-15.3); MCH 27.1 pg (25.7-33.7); MCHC 34.1 g/dl (32.0-36.0); MEAN CELL VOLUME 79.5 fl (80-96); MEAN PLT VOLUME 8.6 fl (7.5-11.1); PLATELET COUNT 334 K/MM3 (134-434); RBC 5.05 M/mm3 (3.60-5.2); WHITE BLOOD COUNT 17.1 K/mm3 (4.0-10.0)
[2020-03-12] MEDS: DEXAMETHASONE SOD PHOSPHATE 4 MG/1 ML VIAL IVPUSH SCH (11:08)
[2020-03-12] MEDS: ASCORBIC ACID 500 MG TABLET (FP) PO SCH ×2 (11:08→21:14)
[2020-03-12] MEDS: ASPIRIN 81 MG CHEWABLE TABLETS PO SCH (11:08)
[2020-03-12] MEDS: amLODIPine BESYLATE 5 MG TABLET (FP) PO SCH (11:09)
[2020-03-12] MEDS: ZINC SULFATE 220 MG CAPSULE (FP) PO SCH ×2 (11:09→21:14)
[2020-03-12] MEDS: ALBUTEROL SO4 HFA INHALER IH SCH ×4 (11:12→20:57)
[2020-03-12] MEDS: BUDESONIDE/FORMETEROL FUMARATE 160/4.5 mcg INHALER IH SCH ×2 (11:12→21:14)
[2020-03-12] MEDS: AZITHROMYCIN IVPB 250 MG in DEXTROSE 5%-WATER - 250 ML IVPB SCH (11:17)
[2020-03-12] MEDS: ENOXAPARIN NA (PORCINE) 40 MG/0.4 ML DISP.SYRIN SQ SCH ×2 (11:17→21:14)
[2020-03-12] MEDS ORDERED: PT OWN MED DRAWER 7, Y5N ONE (11:19)
[2020-03-12] MEDS: REMDESIVIR 100 MG in SODIUM CHLORIDE 230 ML IVPB SCH (15:43)
[2020-03-12] MEDS: CHOLECALCIFEROL (VIT D3) 5000 UNITS (125 MCG) CAP PO SCH (16:09)
[2020-03-12] MEDS ORDERED: POTASSIUM CHLORIDE TABS 20 MEQ TABLET.ER (FP) PO ONE (16:18)
[2020-03-12] MEDS: KCL 10 MEQ IVPB 10 MEQ/100 ML INFUS.BAG IVPB SCH ×3 (17:19→22:41)
[2020-03-12] MEDS ORDERED: INSULIN (NOVOLOG) ASPART 100 UNITS/ML 10ML VIAL ONE (20:27)
[2020-03-12] MEDS ORDERED: NAPH,MB-DB/K PH,MBDB POWDER PACKET PO ONE (21:01)
[2020-03-13] MEDS: ACETAMINOPHEN 325 MG TABLET (FP) PO PRN (04:32)
[2020-03-13] MEDS: MORPHINE SULFATE 2 MG/ML VIAL IVPUSH PRN ×2 (04:32→20:13)
[2020-03-13] MEDS: INSULIN SLIDING SCALE (NOVOLOG) 1 VIAL SQ SCH ×4 (06:57→22:28)
[2020-03-13 06:58] LABS: HEMATOCRIT 37.5 % (32.4-45.2); HEMOGLOBIN 12.6 GM/dL (10.7-15.3); MCH 26.9 pg (25.7-33.7); MCHC 33.6 g/dl (32.0-36.0); MEAN CELL VOLUME 79.9 fl (80-96); MEAN PLT VOLUME 8.7 fl (7.5-11.1); PLATELET COUNT 322 K/MM3 (134-434); RBC 4.69 M/mm3 (3.60-5.2); WHITE BLOOD COUNT 15.2 K/mm3 (4.0-10.0)
[2020-03-13 07:19] LABS: POTASSIUM 3.4 mmol/L (3.5-5.1)
[2020-03-13 07:23] LABS: CALCIUM 8.2 mg/dL (8.5-10.1)
[2020-03-13 07:24] LABS: ALBUMIN 2.5 g/dl (3.4-5.0); BLOOD UREA NITROGEN 16.1 mg/dL (7-18)
[2020-03-13 07:27] LABS: CREATININE 0.8 mg/dL (0.55-1.3)
[2020-03-13 07:28] LABS: BILIRUBIN,TOTAL 1.3 mg/dL (0.2-1)
[2020-03-13 07:29] LABS: TOT PROT 6.8 g/dl (6.4-8.2)
[2020-03-13] MEDS ORDERED: POTASSIUM CHLORIDE TABS 20 MEQ TABLET.ER (FP) PO ONE (08:58)
[2020-03-13] MEDS: ALBUTEROL SO4 HFA INHALER IH SCH ×4 (09:00→20:13)
[2020-03-13] MEDS: ENOXAPARIN NA (PORCINE) 40 MG/0.4 ML DISP.SYRIN SQ SCH ×2 (09:13→22:27)
[2020-03-13] MEDS: DEXAMETHASONE SOD PHOSPHATE 4 MG/1 ML VIAL IVPUSH SCH (09:13)
[2020-03-13] MEDS: ASPIRIN 81 MG CHEWABLE TABLETS PO SCH (09:14)
[2020-03-13] MEDS: ZINC SULFATE 220 MG CAPSULE (FP) PO SCH ×2 (09:14→22:28)
[2020-03-13] MEDS: ASCORBIC ACID 500 MG TABLET (FP) PO SCH ×2 (09:14→22:28)
[2020-03-13] MEDS: amLODIPine BESYLATE 5 MG TABLET (FP) PO SCH (09:14)
[2020-03-13] MEDS: BUDESONIDE/FORMETEROL FUMARATE 160/4.5 mcg INHALER IH SCH ×2 (09:16→22:29)
[2020-03-13 09:59] LABS: MAGNESIUM 2.1 mg/dL (1.8-2.4)
[2020-03-13 10:03] LABS: PHOSPHOROUS 2.1 mg/dL (2.5-4.9)
[2020-03-13] MEDS: NAPH,MB-DB/K PH,MBDB POWDER PACKET PO SCH ×2 (12:25→22:27)
[2020-03-13] MEDS: CHOLECALCIFEROL (VIT D3) 5000 UNITS (125 MCG) CAP PO SCH (12:25)
[2020-03-13] MEDS: REMDESIVIR 100 MG in SODIUM CHLORIDE 230 ML IVPB SCH (13:27)
[2020-03-13] MEDS ORDERED: INSULIN (NOVOLOG) ASPART 100 UNITS/ML 10ML VIAL ONE (22:14)
[2020-03-13] MEDS ORDERED: PT OWN MED DRAWER 7, Y5N ONE (22:14)
[2020-03-14] MEDS: INSULIN SLIDING SCALE (NOVOLOG) 1 VIAL SQ SCH ×4 (06:06→21:55)
[2020-03-14 06:45] LABS: BASO % 0.3 % (0-2.0); HEMATOCRIT 36.9 % (32.4-45.2); HEMOGLOBIN 12.5 GM/dL (10.7-15.3); LYMPH % 5.8 % (8-40); MCH 27.1 pg (25.7-33.7); MCHC 33.8 g/dl (32.0-36.0); MEAN CELL VOLUME 80.1 fl (80-96); MEAN PLT VOLUME 8.8 fl (7.5-11.1); MONO % 2.4 % (3.8-10.2); NEUT % 91.5 % (42.8-82.8); PLATELET COUNT 353 K/MM3 (134-434); RBC 4.61 M/mm3 (3.60-5.2); RDW 14.5 % (11.6-15.6)
[2020-03-14 07:02] LABS: POTASSIUM 3.4 mmol/L (3.5-5.1)
[2020-03-14 07:04] LABS: ALBUMIN 2.5 g/dl (3.4-5.0); CALCIUM 8.4 mg/dL (8.5-10.1)
[2020-03-14 07:05] LABS: BLOOD UREA NITROGEN 15.5 mg/dL (7-18)
[2020-03-14 07:08] LABS: CREATININE 0.7 mg/dL (0.55-1.3); PHOSPHOROUS 2.2 mg/dL (2.5-4.9)
[2020-03-14 07:09] LABS: TOT PROT 6.9 g/dl (6.4-8.2)
[2020-03-14 09:00] LABS: ANISOCYTOSIS 1+; MACROCYTOSIS 0; PLATELET ESTIMATE NORMAL
[2020-03-14] MEDS ORDERED: POTASSIUM CHLORIDE TABS 20 MEQ TABLET.ER (FP) PO ONE (09:21)
[2020-03-14] MEDS: amLODIPine BESYLATE 5 MG TABLET (FP) PO SCH (09:58)
[2020-03-14] MEDS: ENOXAPARIN NA (PORCINE) 40 MG/0.4 ML DISP.SYRIN SQ SCH ×2 (09:58→21:53)
[2020-03-14] MEDS: CHOLECALCIFEROL (VIT D3) 5000 UNITS (125 MCG) CAP PO SCH (09:58)
[2020-03-14] MEDS: ZINC SULFATE 220 MG CAPSULE (FP) PO SCH ×2 (09:58→21:54)
[2020-03-14] MEDS: ASPIRIN 81 MG CHEWABLE TABLETS PO SCH (09:58)
[2020-03-14] MEDS: NAPH,MB-DB/K PH,MBDB POWDER PACKET PO SCH ×2 (09:59→21:54)
[2020-03-14] MEDS: BUDESONIDE/FORMETEROL FUMARATE 160/4.5 mcg INHALER IH SCH ×2 (09:59→21:54)
[2020-03-14] MEDS: ALBUTEROL SO4 HFA INHALER IH SCH ×4 (09:59→21:53)
[2020-03-14] MEDS: DEXAMETHASONE SOD PHOSPHATE 4 MG/1 ML VIAL IVPUSH SCH (09:59)
[2020-03-14] MEDS: ASCORBIC ACID 500 MG TABLET (FP) PO SCH ×2 (09:59→21:53)
[2020-03-14] MEDS: guaiFENesin/CODEINE 5 ML UNIT-DOSE CUPS PO SCH ×2 (14:04→18:09)
[2020-03-14] MEDS: MORPHINE SULFATE 2 MG/ML VIAL IVPUSH PRN ×2 (14:04→21:54)
[2020-03-14] MEDS ORDERED: MORPHINE SULFATE 2 MG/ML VIAL IVPUSH ONE (15:21)
[2020-03-14] MEDS: FUROSEMIDE 40 MG/4 ML INJECTABLE VIAL IVPUSH SCH (16:08)
[2020-03-14 20:19] LABS: ARTERIAL BLD GAS O2 SATURATION 93.2 mmHg (95-98); ARTERIAL BLOOD GAS BASE EXCESS 4.3 mmol/L (-2-2); ARTERIAL BLOOD GAS PO2 65.2 mmHg (80-100)
[2020-03-14 20:21] LABS: ALLENS TEST POSITIVE
[2020-03-14 20:22] LABS: VENT MODE S/T; VENT RATE 16
[2020-03-15] MEDS: guaiFENesin/CODEINE 5 ML UNIT-DOSE CUPS PO SCH ×5 (00:07→23:38)
[2020-03-15] MEDS: INSULIN SLIDING SCALE (NOVOLOG) 1 VIAL SQ SCH ×4 (06:36→21:38)
[2020-03-15 07:06] LABS: BASO % 0.2 % (0-2.0); HEMATOCRIT 42.4 % (32.4-45.2); HEMOGLOBIN 13.8 GM/dL (10.7-15.3); MCH 26.8 pg (25.7-33.7); MCHC 32.6 g/dl (32.0-36.0); MEAN CELL VOLUME 82.1 fl (80-96); MEAN PLT VOLUME 9.3 fl (7.5-11.1); MONO % 2.7 % (3.8-10.2); NEUT % 93.1 % (42.8-82.8); PLATELET COUNT 431 K/MM3 (134-434); RBC 5.16 M/mm3 (3.60-5.2); RDW 14.3 % (11.6-15.6); WHITE BLOOD COUNT 21.4 K/mm3 (4.0-10.0)
[2020-03-15 07:23] LABS: POTASSIUM 3.6 mmol/L (3.5-5.1)
[2020-03-15 07:27] LABS: BLOOD UREA NITROGEN 21.2 mg/dL (7-18)
[2020-03-15 07:29] LABS: CALCIUM 9.1 mg/dL (8.5-10.1)
[2020-03-15 07:30] LABS: CREATININE 0.8 mg/dL (0.55-1.3); MAGNESIUM 2.3 mg/dL (1.8-2.4); PHOSPHOROUS 3.3 mg/dL (2.5-4.9)
[2020-03-15] MEDS: MORPHINE SULFATE 2 MG/ML VIAL IVPUSH PRN ×2 (08:16→16:34)
[2020-03-15] MEDS: DEXAMETHASONE SOD PHOSPHATE 4 MG/1 ML VIAL IVPUSH SCH ×2 (08:25→09:31)
[2020-03-15] MEDS: amLODIPine BESYLATE 5 MG TABLET (FP) PO SCH ×2 (08:25→09:43)
[2020-03-15] MEDS: ENOXAPARIN NA (PORCINE) 40 MG/0.4 ML DISP.SYRIN SQ SCH ×2 (09:29→21:05)
[2020-03-15] MEDS: FUROSEMIDE 40 MG/4 ML INJECTABLE VIAL IVPUSH SCH (09:30)
[2020-03-15] MEDS: ALBUTEROL SO4 HFA INHALER IH SCH ×4 (09:31→21:38)
[2020-03-15] MEDS: BUDESONIDE/FORMETEROL FUMARATE 160/4.5 mcg INHALER IH SCH ×2 (09:31→21:38)
[2020-03-15] MEDS: ASPIRIN 81 MG CHEWABLE TABLETS PO SCH (09:42)
[2020-03-15] MEDS: ASCORBIC ACID 500 MG TABLET (FP) PO SCH ×2 (09:42→21:37)
[2020-03-15] MEDS: ZINC SULFATE 220 MG CAPSULE (FP) PO SCH ×2 (09:42→21:37)
[2020-03-15] MEDS: CHOLECALCIFEROL (VIT D3) 5000 UNITS (125 MCG) CAP PO SCH (09:42)
[2020-03-15 10:06] LABS: ANISOCYTOSIS 0; MACROCYTOSIS 0; PLATELET ESTIMATE NORMAL
[2020-03-15] MEDS ORDERED: dilTIAZem HCL 50 MG/10 ML - 10 ML VIAL IVPUSH PRN ×3 (11:50→19:52)
[2020-03-15] MEDS ORDERED: MIDAZOLAM HCL 5 MG/1 ML Single Dose Vial IVPUSH ONE (17:29)
[2020-03-15] MEDS ORDERED: MIDAZOLAM HCL 2 MG/2 ML SINGLE DOSE VIAL IVPUSH ONE (17:29)
[2020-03-15] MEDS ORDERED: MIDAZOLAM HCL 2 MG/2 ML SINGLE DOSE VIAL ONE (17:33)
[2020-03-15] MEDS ORDERED: RAPID SEQUENCE INTUBATION KIT NR ONE (17:48)
[2020-03-15] MEDS ORDERED: FENTANYL NS IVPB 500 MCG/100 ML BAG IVPB ONE (18:05)
[2020-03-15] MEDS ORDERED: PHENYLEPHRINE HCL 10 MG/1 ML SINGLE DOSE VIAL IVPB ONE (18:05)
[2020-03-15] MEDS ORDERED: MIDAZOLAM 100 MG/100 ML MG IVPB ONE ×2 (18:06→22:03)
[2020-03-15] MEDS ORDERED: PROPOFOL 200 MG/20 ML VIAL IVPUSH ONE (18:09)
[2020-03-15] MEDS ORDERED: ROCURONIUM BROMIDE 50 MG/5 ML VIAL IV ONE (18:09)
[2020-03-15] MEDS ORDERED: PROPOFOL 1,000,000 MCG/100 ML VIAL ONE (18:18)
[2020-03-15] MEDS: FENTANYL NS IVPB 500 MCG/100 ML BAG IVPB SCH (18:20)
[2020-03-15] MEDS: MIDAZOLAM 100 MG in SODIUM CHLORIDE 100 ML IVPB SCH (18:21)
[2020-03-15] MEDS: PROPOFOL 1,000,000 MCG/100 ML VIAL IVPB SCH (18:45)
[2020-03-15] MEDS ORDERED: MORPHINE SULFATE 2 MG/ML VIAL IVPUSH PRN (19:52)
[2020-03-15] MEDS ORDERED: ALBUTEROL SO4 HFA INHALER IH PRN (19:52)
[2020-03-15] MEDS ORDERED: ACETAMINOPHEN 325 MG TABLET (FP) PO PRN (19:52)
[2020-03-15 20:45] LABS: ARTERIAL BLD GAS O2 SATURATION 79.3 mmHg (95-98); ARTERIAL BLOOD GAS BASE EXCESS -0.1 mmol/L (-2-2); ARTERIAL BLOOD GAS PO2 50.5 mmHg (80-100); ARTERIAL BLOOD GAS pH 7.262 (7.350-7.450)
[2020-03-15 20:52] LABS: ALLENS TEST POSITIVE
[2020-03-15 20:53] LABS: VENT MODE A/C; VENT RATE 30
[2020-03-15] MEDS ORDERED: PT OWN MED DRAWER 7, Y5N ONE (20:57)
[2020-03-15] MEDS: SODIUM CHLORIDE 1,000 ML IV SCH (21:37)
[2020-03-15] MEDS: POTASSIUM CHLORIDE ORAL LIQUID 20 MEQ/15 ML PO SCH (21:41)
[2020-03-15] MEDS ORDERED: ROCURONIUM BROMIDE 100 MG/10 ML VIAL ONE (23:03)
[2020-03-15] MEDS ORDERED: ROCURONIUM BROMIDE 100 MG/10 ML VIAL IV ONE (23:03)
[2020-03-15] MEDS: VECURONIUM BROMIDE 100 MG/100 ML BAG IVPB SCH (23:37)
[2020-03-16] MEDS: POTASSIUM CHLORIDE ORAL LIQUID 20 MEQ/15 ML PO SCH (01:45)
[2020-03-16] MEDS ORDERED: fentaNYL CITRATE 250 MCG/5 ML VIAL ONE (03:01)
[2020-03-16] MEDS ORDERED: SODIUM CHLORIDE 1,000 ML IV STA ×2 (03:18→03:19)
[2020-03-16] MEDS ORDERED: SODIUM CHLORIDE 500 ML IV STA (03:19)
[2020-03-16] MEDS: guaiFENesin/CODEINE 5 ML UNIT-DOSE CUPS PO SCH (05:11)
[2020-03-16 06:38] LABS: ALLENS TEST POSITIVE; ARTERIAL BLD GAS O2 SATURATION 82.7 mmHg (95-98); ARTERIAL BLOOD GAS BASE EXCESS -4.6 mmol/L (-2-2); ARTERIAL BLOOD GAS PO2 56.4 mmHg (80-100); ARTERIAL BLOOD GAS pH 7.216 (7.350-7.450)
[2020-03-16 06:39] LABS: VENT MODE A/C; VENT RATE 30
[2020-03-16] MEDS: INSULIN SLIDING SCALE (NOVOLOG) 1 VIAL SQ SCH ×3 (06:46→16:59)
[2020-03-16 07:04] LABS: BASO % 0.3 % (0-2.0); HEMATOCRIT 34.8 % (32.4-45.2); LYMPH % 4.1 % (8-40); MCH 26.6 pg (25.7-33.7); MCHC 31.7 g/dl (32.0-36.0); MEAN CELL VOLUME 84.1 fl (80-96); MEAN PLT VOLUME 9.4 fl (7.5-11.1); MONO % 3.7 % (3.8-10.2); NEUT % 91.9 % (42.8-82.8); PLATELET COUNT 347 K/MM3 (134-434); RBC 4.14 M/mm3 (3.60-5.2); RDW 15.4 % (11.6-15.6); WHITE BLOOD COUNT 18.6 K/mm3 (4.0-10.0)
[2020-03-16 07:32] LABS: ALBUMIN 1.8 g/dl (3.4-5.0); CALCIUM 7.1 mg/dL (8.5-10.1)
[2020-03-16 07:33] LABS: BLOOD UREA NITROGEN 42.4 mg/dL (7-18)
[2020-03-16 07:36] LABS: BILIRUBIN,TOTAL 0.6 mg/dL (0.2-1); CREATININE 1.8 mg/dL (0.55-1.3); PHOSPHOROUS 5.4 mg/dL (2.5-4.9); TOT PROT 5.7 g/dl (6.4-8.2)
[2020-03-16] MEDS: FENTANYL NS IVPB 500 MCG/100 ML BAG IVPB SCH ×2 (08:35→20:58)
[2020-03-16] MEDS ORDERED: MIDAZOLAM 100 MG/100 ML MG IVPB ONE ×2 (09:49→19:32)
[2020-03-16] MEDS: SODIUM CHLORIDE 1,000 ML IV SCH (09:54)
[2020-03-16] MEDS: ASCORBIC ACID 500 MG TABLET (FP) PO SCH ×2 (09:55→21:05)
[2020-03-16] MEDS: ZINC SULFATE 220 MG CAPSULE (FP) PO SCH ×2 (09:55→21:05)
[2020-03-16] MEDS: ASPIRIN 81 MG CHEWABLE TABLETS NGT SCH (09:56)
[2020-03-16] MEDS: PANTOPRAZOLE SODIUM 40 MG VIAL IVPUSH SCH (09:56)
[2020-03-16] MEDS: ENOXAPARIN NA (PORCINE) 40 MG/0.4 ML DISP.SYRIN SQ SCH (09:57)
[2020-03-16] MEDS ORDERED: LEVOTHYROXINE SODIUM 100 MCG VIAL IVPUSH SCH (10:00)
[2020-03-16] MEDS ORDERED: DEXAMETHASONE SOD PHOSPHATE 4 MG/1 ML VIAL IVPUSH SCH (10:00)
[2020-03-16] MEDS ORDERED: PT OWN MED DRAWER 7, Y5N ONE ×4 (10:00→21:02)
[2020-03-16] MEDS ORDERED: FUROSEMIDE 40 MG/4 ML INJECTABLE VIAL IVPUSH SCH (10:00)
[2020-03-16] MEDS ORDERED: ASPIRIN 81 MG CHEWABLE TABLETS PO SCH (10:00)
[2020-03-16] MEDS: LEVOTHYROXINE SODIUM 100 MCG VIAL IVPUSH SCH (10:02)
[2020-03-16 10:19] LABS: ANISOCYTOSIS 0; MACROCYTOSIS 0; PLATELET ESTIMATE NORMAL
[2020-03-16] MEDS: PROPOFOL 1,000,000 MCG/100 ML VIAL IVPB SCH ×2 (10:40→20:58)
[2020-03-16] MEDS ORDERED: DEXAMETHASONE SOD PHOSPHATE 4 MG/1 ML VIAL IVPUSH ONE (10:59)
[2020-03-16] MEDS ORDERED: HEPARIN NA (PORCINE) 5,000 UNITS/ML 1ML VIAL IVPUSH PRN ×2 (11:00)
[2020-03-16] MEDS: MIDAZOLAM 100 MG in SODIUM CHLORIDE 100 ML IVPB SCH ×2 (11:09→20:58)
[2020-03-16] MEDS ORDERED: PIPERACILLIN/TAZOBACTAM 3.375 GM VIAL IVPB ONE ×2 (12:50→17:15)
[2020-03-16] MEDS ORDERED: DEXTROSE 5%-WATER - 50 ML IVPB ONE ×2 (12:50→17:15)
[2020-03-16] MEDS: HEPARIN - 25,000 UNIT in SODIUM CHLORIDE 495 ML IV SCH (12:53)
[2020-03-16] MEDS: VECURONIUM BROMIDE 100 MG/100 ML BAG IVPB SCH ×2 (12:58→22:36)
[2020-03-16] MEDS ORDERED: VANCOMYCIN 1 GRAM (PRE-DOCKED) 1,000 MG/250 ML BAG IVPB ONE (13:00)
[2020-03-16] MEDS: PIPERACILLIN/TAZOB 3.375 GM 3.375 GM in DEXTROSE 5%-WATER - 50 ML IVPB SCH ×2 (13:19→17:38)
[2020-03-16] MEDS: ALBUTEROL SO4 HFA INHALER IH SCH (15:40)
[2020-03-16] MEDS: BUDESONIDE/FORMETEROL FUMARATE 160/4.5 mcg INHALER IH SCH ×2 (15:40→22:36)
[2020-03-16] MEDS ORDERED: SODIUM CHLORIDE 0.45% 1,000 ML IV SCH (15:45)
[2020-03-16] MEDS ORDERED: ACETAMINOPHEN 1000 MG/100 ML VIAL (NON FORMULARY) IVPB ONE (17:12)
[2020-03-16] MEDS ORDERED: ACETAMINOPHEN INJECTION 100 ML IVPB ONE (17:15)
[2020-03-16] MEDS: CHOLECALCIFEROL (VIT D3) 5000 UNITS (125 MCG) CAP PO SCH (17:36)
[2020-03-16] MEDS ORDERED: SODIUM CHLORIDE 0.9% 500 ML INFUS.BAG IV ONE (20:34)
[2020-03-16] MEDS: AMINO ACIDS/PROTEIN HYDROLYS 30 ML LIQUID.PKT PO SCH (21:06)
[2020-03-17] MEDS ORDERED: DEXTROSE 5%-WATER - 50 ML IVPB ONE ×3 (00:47→17:04)
[2020-03-17] MEDS ORDERED: PIPERACILLIN/TAZOBACTAM 3.375 GM VIAL IVPB ONE ×3 (00:47→17:04)
[2020-03-17] MEDS: PIPERACILLIN/TAZOB 3.375 GM 3.375 GM in DEXTROSE 5%-WATER - 50 ML IVPB SCH ×3 (01:21→17:08)
[2020-03-17] MEDS: INSULIN SLIDING SCALE (NOVOLOG) 1 VIAL SQ SCH ×5 (01:26→21:35)
[2020-03-17] MEDS ORDERED: fentaNYL CITRATE 250 MCG/5 ML VIAL ONE (03:33)
[2020-03-17] MEDS: PROPOFOL 1,000,000 MCG/100 ML VIAL IVPB SCH ×3 (07:44→21:16)
[2020-03-17 08:25] LABS: ALBUMIN 1.6 g/dl (3.4-5.0); BILIRUBIN,TOTAL 0.5 mg/dL (0.2-1); BLOOD UREA NITROGEN 49.7 mg/dL (7-18); CALCIUM 7.3 mg/dL (8.5-10.1); CREATININE 2.1 mg/dL (0.55-1.3); MAGNESIUM 2.2 mg/dL (1.8-2.4); PHOSPHOROUS 4.9 mg/dL (2.5-4.9); POTASSIUM 4.4 mmol/L (3.5-5.1); TOT PROT 5.9 g/dl (6.4-8.2)
[2020-03-17] MEDS ORDERED: PT OWN MED DRAWER 7, Y5N ONE ×2 (08:27→16:46)
[2020-03-17] MEDS: AMINO ACIDS/PROTEIN HYDROLYS 30 ML LIQUID.PKT PO SCH ×2 (09:01→17:07)
[2020-03-17] MEDS: ZINC SULFATE 220 MG CAPSULE (FP) PO SCH ×2 (09:01→21:14)
[2020-03-17] MEDS: ASPIRIN 81 MG CHEWABLE TABLETS NGT SCH (09:01)
[2020-03-17] MEDS: DEXAMETHASONE SOD PHOSPHATE 4 MG/1 ML VIAL IVPUSH SCH (09:03)
[2020-03-17] MEDS: PANTOPRAZOLE SODIUM 40 MG VIAL IVPUSH SCH (09:10)
[2020-03-17] MEDS: ASCORBIC ACID 500 MG TABLET (FP) PO SCH ×2 (09:11→21:15)
[2020-03-17] MEDS: FENTANYL NS IVPB 500 MCG/100 ML BAG IVPB SCH ×3 (09:13→21:15)
[2020-03-17] MEDS: HEPARIN - 25,000 UNIT in SODIUM CHLORIDE 495 ML IV SCH (12:17)
[2020-03-17] MEDS: BUDESONIDE/FORMETEROL FUMARATE 160/4.5 mcg INHALER IH SCH ×2 (16:43→21:14)
[2020-03-17] MEDS: LEVOTHYROXINE SODIUM 100 MCG VIAL IVPUSH SCH (16:52)
[2020-03-17] MEDS: CHOLECALCIFEROL (VIT D3) 5000 UNITS (125 MCG) CAP PO SCH (16:53)
[2020-03-17] MEDS: SODIUM CHLORIDE 0.45% 1,000 ML IV SCH (16:57)
[2020-03-17] MEDS: MIDAZOLAM 100 MG in SODIUM CHLORIDE 100 ML IVPB SCH (18:50)
[2020-03-17] MEDS ORDERED: MIDAZOLAM 100 MG/100 ML MG IVPB ONE (22:19)
[2020-03-18] MEDS: VECURONIUM BROMIDE 100 MG/100 ML BAG IVPB SCH (01:17)
[2020-03-18] MEDS ORDERED: MIDAZOLAM 100 MG/100 ML MG IVPB ONE ×2 (01:19→22:12)
[2020-03-18] MEDS ORDERED: DEXTROSE 5%-WATER - 50 ML IVPB ONE ×3 (01:20→16:45)
[2020-03-18] MEDS ORDERED: PIPERACILLIN/TAZOBACTAM 3.375 GM VIAL IVPB ONE ×2 (01:20→07:35)
[2020-03-18] MEDS: PIPERACILLIN/TAZOB 3.375 GM 3.375 GM in DEXTROSE 5%-WATER - 50 ML IVPB SCH ×2 (01:29→09:36)
[2020-03-18 06:07] LABS: ARTERIAL BLD GAS O2 SATURATION 69.6 mmHg (95-98); ARTERIAL BLOOD GAS pH 7.085 (7.350-7.450)
[2020-03-18 06:21] LABS: ALLENS TEST POSITIVE
[2020-03-18 06:22] LABS: VENT MODE A/C; VENT RATE 30
[2020-03-18 06:23] LABS: ARTERIAL BLOOD GAS BASE EXCESS -10.2 mmol/L (-2-2)
[2020-03-18] MEDS ORDERED: SODIUM BICARBONATE 8.4% 50 MEQ/50 ML VIAL IVPUSH ONE (06:31)
[2020-03-18] MEDS: INSULIN SLIDING SCALE (NOVOLOG) 1 VIAL SQ SCH ×4 (07:02→22:01)
[2020-03-18] MEDS ORDERED: PT OWN MED DRAWER 7, Y5N ONE ×2 (07:34→09:52)
[2020-03-18 07:43] LABS: HEMATOCRIT 39.4 % (32.4-45.2); HEMOGLOBIN 12.4 GM/dL (10.7-15.3); MCHC 31.6 g/dl (32.0-36.0); MEAN CELL VOLUME 85.6 fl (80-96); MEAN PLT VOLUME 9.6 fl (7.5-11.1); PLATELET COUNT 294 K/MM3 (134-434); RDW 16.1 % (11.6-15.6); WHITE BLOOD COUNT 14.5 K/mm3 (4.0-10.0)
[2020-03-18] MEDS: SODIUM CHLORIDE 0.45% 1,000 ML IV SCH ×2 (07:55→12:02)
[2020-03-18] MEDS: AMINO ACIDS/PROTEIN HYDROLYS 30 ML LIQUID.PKT PO SCH ×2 (07:55→16:52)
[2020-03-18 08:58] LABS: POTASSIUM 4.9 mmol/L (3.5-5.1)
[2020-03-18 09:02] LABS: ALBUMIN 1.7 g/dl (3.4-5.0); BLOOD UREA NITROGEN 66.5 mg/dL (7-18); CALCIUM 7.6 mg/dL (8.5-10.1); MAGNESIUM 2.3 mg/dL (1.8-2.4)
[2020-03-18 09:04] LABS: CREATININE 3.1 mg/dL (0.55-1.3); PHOSPHOROUS 6.2 mg/dL (2.5-4.9)
[2020-03-18 09:07] LABS: BILIRUBIN,TOTAL 0.4 mg/dL (0.2-1)
[2020-03-18] MEDS: PANTOPRAZOLE SODIUM 40 MG VIAL IVPUSH SCH (09:32)
[2020-03-18] MEDS: DEXAMETHASONE SOD PHOSPHATE 4 MG/1 ML VIAL IVPUSH SCH (09:32)
[2020-03-18] MEDS: ASPIRIN 81 MG CHEWABLE TABLETS NGT SCH (09:36)
[2020-03-18] MEDS: BUDESONIDE/FORMETEROL FUMARATE 160/4.5 mcg INHALER IH SCH ×2 (09:36→21:47)
[2020-03-18] MEDS: ASCORBIC ACID 500 MG TABLET (FP) PO SCH ×2 (09:36→22:02)
[2020-03-18] MEDS: ZINC SULFATE 220 MG CAPSULE (FP) PO SCH ×2 (09:36→22:01)
[2020-03-18] MEDS: CHOLECALCIFEROL (VIT D3) 5000 UNITS (125 MCG) CAP PO SCH (10:21)
[2020-03-18] MEDS: LEVOTHYROXINE SODIUM 100 MCG VIAL IVPUSH SCH (10:21)
[2020-03-18] MEDS: FENTANYL NS IVPB 500 MCG/100 ML BAG IVPB SCH ×3 (10:40→17:50)
[2020-03-18] MEDS: HEPARIN - 25,000 UNIT in SODIUM CHLORIDE 495 ML IV SCH (12:03)
[2020-03-18] MEDS: MIDAZOLAM 100 MG in SODIUM CHLORIDE 100 ML IVPB SCH ×2 (12:03→17:50)
[2020-03-18] MEDS ORDERED: ACETAMINOPHEN 1000 MG/100 ML VIAL (NON FORMULARY) IVPB ONE (12:10)
[2020-03-18] MEDS ORDERED: ACETAMINOPHEN INJECTION 100 ML IVPB ONE (12:12)
[2020-03-18] MEDS: CHOLECALCIFEROL (VIT D SOLUTION) 400 UNIT/1 ML DROPS NGT SCH (12:14)
[2020-03-18] MEDS: SODIUM BICARBONATE 8.4% 50 MEQ/50 ML VIAL IV SCH ×3 (14:46→22:01)
[2020-03-18] MEDS: PROPOFOL 1,000,000 MCG/100 ML VIAL IVPB SCH ×2 (16:21→22:01)
[2020-03-18] MEDS ORDERED: PIPERACILLIN/TAZOBACTAM 2.25 GM VIAL IVPB ONE (16:45)
[2020-03-18] MEDS: PIPERACILLIN/TAZOB 2.25 GM 2.25 GM in DEXTROSE 5%-WATER - 50 ML IVPB SCH (17:06)
[2020-03-18] MEDS ORDERED: ACETAMINOPHEN 1000 MG/100 ML VIAL (NON FORMULARY) IVPB PRN (18:31)
[2020-03-19] MEDS ORDERED: DEXTROSE 5%-WATER - 50 ML IVPB ONE ×3 (01:22→17:55)
[2020-03-19] MEDS ORDERED: PIPERACILLIN/TAZOBACTAM 2.25 GM VIAL IVPB ONE ×3 (01:22→17:55)
[2020-03-19] MEDS: SODIUM BICARBONATE 8.4% 50 MEQ/50 ML VIAL IV SCH ×5 (01:47→18:53)
[2020-03-19] MEDS: VECURONIUM BROMIDE 100 MG/100 ML BAG IVPB SCH (01:47)
[2020-03-19] MEDS: PIPERACILLIN/TAZOB 2.25 GM 2.25 GM in DEXTROSE 5%-WATER - 50 ML IVPB SCH ×3 (02:03→18:53)
[2020-03-19] MEDS: INSULIN SLIDING SCALE (NOVOLOG) 1 VIAL SQ SCH ×3 (05:59→18:52)
[2020-03-19 07:32] LABS: BASO % 0.3 % (0-2.0); EOS % 0.1 % (0-4.5); HEMATOCRIT 33.7 % (32.4-45.2); HEMOGLOBIN 10.9 GM/dL (10.7-15.3); LYMPH % 5.5 % (8-40); MCH 27.1 pg (25.7-33.7); MCHC 32.2 g/dl (32.0-36.0); MONO % 1.4 % (3.8-10.2); NEUT % 92.7 % (42.8-82.8); PLATELET COUNT 196 K/MM3 (134-434); RBC 4.02 M/mm3 (3.60-5.2); RDW 15.8 % (11.6-15.6); WHITE BLOOD COUNT 10.8 K/mm3 (4.0-10.0)
[2020-03-19] MEDS: AMINO ACIDS/PROTEIN HYDROLYS 30 ML LIQUID.PKT PO SCH ×2 (09:07→18:53)
[2020-03-19 09:23] LABS: ALBUMIN 1.4 g/dl (3.4-5.0); BILIRUBIN,TOTAL 0.4 mg/dL (0.2-1); BLOOD UREA NITROGEN 88.7 mg/dL (7-18); CALCIUM 7.3 mg/dL (8.5-10.1); CREATININE 4.7 mg/dL (0.55-1.3); MAGNESIUM 2.3 mg/dL (1.8-2.4); PHOSPHOROUS 6.7 mg/dL (2.5-4.9); POTASSIUM 4.5 mmol/L (3.5-5.1); TOT PROT 5.1 g/dl (6.4-8.2)
[2020-03-19 09:26] LABS: ANISOCYTOSIS 0; MACROCYTOSIS 0; PLATELET ESTIMATE NORMAL
[2020-03-19] MEDS: PANTOPRAZOLE SODIUM 40 MG VIAL IVPUSH SCH (10:07)
[2020-03-19] MEDS: ZINC SULFATE 220 MG CAPSULE (FP) PO SCH (10:07)
[2020-03-19] MEDS: DEXAMETHASONE SOD PHOSPHATE 4 MG/1 ML VIAL IVPUSH SCH (10:07)
[2020-03-19] MEDS: ASPIRIN 81 MG CHEWABLE TABLETS NGT SCH (10:07)
[2020-03-19] MEDS: LEVOTHYROXINE SODIUM 100 MCG VIAL IVPUSH SCH (10:09)
[2020-03-19] MEDS: BUDESONIDE/FORMETEROL FUMARATE 160/4.5 mcg INHALER IH SCH (10:09)
[2020-03-19] MEDS: CHOLECALCIFEROL (VIT D SOLUTION) 400 UNIT/1 ML DROPS NGT SCH (10:09)
[2020-03-19] MEDS: ASCORBIC ACID 500 MG TABLET (FP) PO SCH (10:09)
[2020-03-19] MEDS ORDERED: PT OWN MED DRAWER 7, Y5N ONE (10:57)
[2020-03-19] MEDS ORDERED: MIDAZOLAM 100 MG/100 ML MG IVPB ONE (11:04)
[2020-03-19] MEDS: HEPARIN - 25,000 UNIT in SODIUM CHLORIDE 495 ML IV SCH (12:00)
[2020-03-19 13:40] VITALS: TEMP 99.6
[2020-03-19 15:12] LABS: ARTERIAL BLD GAS O2 SATURATION 41.7 mmHg (95-98); ARTERIAL BLOOD GAS BASE EXCESS -5.7 mmol/L (-2-2)
[2020-03-19 15:13] LABS: ALLENS TEST POSITIVE
[2020-03-19 15:14] LABS: VENT MODE AC; VENT RATE 30
[2020-03-19 15:17] LABS: ARTERIAL BLOOD GAS pH 7.121 (7.350-7.450)
[2020-03-19 15:18] LABS: ARTERIAL BLOOD GAS PO2 31.6 mmHg (80-100)
[2020-03-19 16:20] VITALS: BMI 33.7
[2020-03-19 19:20] VITALS: BP 55/33; PULSE 81
== END 2020-03-19 19:57 | disposition expired | DRG 951 ==
LOC: JER 13:36 → JERBED 18:11 → J7W 03-09 11:58 → J4W 03-15 09:57 → JICU 03-15 16:43
PROVIDERS: ADMIT Internal Medicine; ATTEND Internal Medicine Pulmonary Disease
PROC: XW13325 Transfusion of Convalescent Plasma (Nonautologous) into Peripheral Vein, Percutaneous Approach, New Technology Group 5 (ICD-10-PCS; principal; 2020-03-09)
PROC: XW033E5 Introduction of Remdesivir Anti-infective into Peripheral Vein, Percutaneous Approach, New Technology Group 5 (ICD-10-PCS; 2020-03-09)
PROC: 5A1955Z Respiratory Ventilation, Greater than 96 Consecutive Hours (ICD-10-PCS; 2020-03-09)
PROC: 0CHY7BZ Insertion of Airway into Mouth and Throat, Via Natural or Artificial Opening (ICD-10-PCS; 2020-03-15)
PROC: 05HN33Z Insertion of Infusion Device into Left Internal Jugular Vein, Percutaneous Approach (ICD-10-PCS; 2020-03-15)
PROC: B544ZZA Ultrasonography of Left Jugular Veins, Guidance (ICD-10-PCS; 2020-03-15)
PROC: 0DH673Z Insertion of Infusion Device into Stomach, Via Natural or Artificial Opening (ICD-10-PCS; 2020-03-15)
DX: U07.1 COVID-19 (principal); J12.82 Pneumonia due to coronavirus disease 2019; I10 Essential (primary) hypertension; E78.5 Hyperlipidemia, unspecified; N83.209 Unspecified ovarian cyst, unspecified side; R43.8 Other disturbances of smell and taste; J98.2 Interstitial emphysema; J93.9 Pneumothorax, unspecified; E87.6 Hypokalemia; E03.9 Hypothyroidism, unspecified; E11.9 Type 2 diabetes mellitus without complications; N17.0 Acute kidney failure with tubular necrosis; J80 Acute respiratory distress syndrome; Z86.73 Personal history of transient ischemic attack (TIA), and cerebral infarction without residual deficits
CPT/HCPCS: 31500; 36415; 36430; 36600; 71045-TC-FY; 80048; 80053; 81003; 82248; 82550; 82553; 82728; 82803; 82962; 83605; 83615; 83735; 84100; 84484; 85025; 85027; 85379; 85610; 85651; 85730; 86140; 86850; 86900; 86901; 87040; 87070; 87086; 87205; 87804; 93005; 93010; 94002; 94660; 99285-25; C9399; C9803; J0131; J1644; P9017; U0003